=== PATIENT | female | born 1945 | race Caucasian/White ===

== ENCOUNTER 2023-09-23 07:31 | Outpatient (RCR) | payer OTHER, SELFPAY | END 2023-09-23 23:59 | disposition home or self-care (01) | LOC: RPT 07:31 | PROVIDERS: ATTENDING PHYSICIAN Internal Medicine | DX: G95.20 Unspecified cord compression (principal); R29.898 Other symptoms and signs involving the musculoskeletal system; Z73.6 Limitation of activities due to disability; R26.2 Difficulty in walking, not elsewhere classified; M62.81 Muscle weakness (generalized); M54.50 Low back pain, unspecified | CPT/HCPCS: 97110; 97162 ==

== ENCOUNTER 2023-10-23 09:44 | Outpatient (RCR) | payer OTHER, SELFPAY | END 2023-10-23 23:59 | disposition home or self-care (01) | LOC: RPT 09:44 | PROVIDERS: ATTENDING PHYSICIAN Internal Medicine | DX: G95.20 Unspecified cord compression (principal); R29.898 Other symptoms and signs involving the musculoskeletal system; Z73.6 Limitation of activities due to disability; R26.2 Difficulty in walking, not elsewhere classified; M62.81 Muscle weakness (generalized); M54.50 Low back pain, unspecified; R26.89 Other abnormalities of gait and mobility | CPT/HCPCS: 97010; 97110; 97530 ==

== ENCOUNTER 2023-11-03 08:59 | Outpatient (RCR) | payer OTHER, SELFPAY | END 2023-11-03 23:59 | disposition home or self-care (01) | LOC: RPT 08:59 | PROVIDERS: ATTENDING PHYSICIAN Internal Medicine | DX: G95.20 Unspecified cord compression (principal); R29.898 Other symptoms and signs involving the musculoskeletal system; Z73.6 Limitation of activities due to disability; M62.81 Muscle weakness (generalized); R20.0 Anesthesia of skin; R26.2 Difficulty in walking, not elsewhere classified | CPT/HCPCS: 97010; 97110 ==

== ENCOUNTER → 2023-11-05 09:27 | Outpatient (REF) | payer OTHER, SELFPAY | LOC: HWRAD 09:27 | PROVIDERS: ATTENDING PHYSICIAN Internal Medicine | DX: S93.401A Sprain of unspecified ligament of right ankle, initial encounter (principal) | CPT/HCPCS: 73610 ==

== ENCOUNTER 2023-11-06 03:10 | Inpatient (IN) | payer OTHER, SELFPAY ==
[2023-11-05 22:08] VITALS: BP 152/64
--- NOTE | 2023-11-05 23:06 | ED.GENMED ---
History of Present Illness
General
Chief Complaint: Swelling
Source: patient and spouse
Exam Limitations: none
Time Seen by Provider: 11/05/23 22:30
Travel History
Have you had any contact with someone who has COVID-19?: No
Do you have any symptoms of coronavirus? Fever > 100 degrees, chills, cough, shortness of breath, sore throat, loss of taste or smell, muscle aches, or headache?: No
History of Present Illness
History of Present Illness:
This is a 78 year old female that comes in by ambulance with c/o weakness. State that she was trying to go to the [place]. States that she was using her walker and she became weaker and weaker and just fell over the front of the walker. States that she
did not hit the ground but when they lifted her she hat her face. States that she has burning with urination and a headache. Patient also has redness of the right foot with pain. States that she had X-rays done of the right foot this morning.
Denies any fever, chills, chest pain, SOB, abd pain, nausea, vomiting, diarrhea, dizziness.
Past History
Past History
ED Past Medical History: Arrthythmia (Atrial fib), HTN and Other (Herniated disc, Chronic back pain, ); Negative Asthma, Hypercholesterolemia or NIDDM
ED Past Surgical History: Orthopedic (Laminectomy. Foot surgery, Right and left knee replacement.) and Other (Hernia surgery, )
Social History
Tobacco: Former smoker
Alcohol: Former
Drug: None
Personal:
Living: with family
Employment: Retired
Review of Systems
Review of Systems
All Other Systems: ROS reviewed and negative except as documented in HPI and ROS
Constitutional: Reports no symptoms; Denies fever or chills
EENT: Reports no symptoms
Respiratory: Reports no symptoms; Denies cough or trouble breathing
Cardiac: Reports no symptoms; Denies chest pain
ABD/GI: Reports no symptoms; Denies abdominal pain, nausea, vomiting or diarrhea
: Reports dysuria; Denies frequency or urgency
Musculoskeletal: Reports no symptoms
Skin: Reports no symptoms
Neurological: Reports headache and weakness; Denies dizzy
Psychiatric: Reports no symptoms
Phy Exam
General Physical Exam
General Presentation: no apparent distress
General age: appears stated age
General Skin: warm and dry
General Habitus: elderly
General Mental: alert
General Hydration: dry mucous membranes
ENT Exam
ENT Exam: TM's normal, pharynx normal and neck supple
Eye Exam
Eye Exam: EOMI
Cardiovascular Exam
Cardiovascular Exam: regular rate/rhythm and normal peripheral pulses
Pulmonary Exam
Pulmonary Exam: lungs clear, no respiratory distress, no rales, chest non tender, no crackles, no rhonchi, no wheezing and no cough
Gastrointestinal Exam
Gastrointestinal Exam: normal bowel sounds, non tender, soft, no organomegaly, no pulsatile mass and non distended
Musculoskeletal Exam
Musculoskeletal Exam: other (Negative for cervical spine or shoulder tenderness. right foot Limited ROM due to swelling and pain. )
Skin Exam
Skin Exam: normal color, warm/dry, no petechia and redness (right foot on the medial aspect to ankle and dorsal aspect of foot, Contusion right lower lip. Abrasion right shoulder and forehead)
Psychiatric Exam
Psychiatric Exam: normal mood/affect
Scores
Heart Failure Risk
Heart Failure Risk Score: Not Applicable
Course
Orders/Labs/Results
Orders:
Orders
11/05/23 23:05
CT Facial Bones W/o Iv Contras Urgent
Comment:
Reason For Exam: facial bruising fall
CT Head W/o Iv Contrast Urgent
Comment:
Reason For Exam: Fall
0.9% Sodium Chloride 1000 ml [Nss] 1,000 ml IV BOLUS
11/05/23 23:15
Electrocardiogram (*1) Urgent
Reason for Study: Fatigue / Weakness
EKG- Treatment ONCE
11/05/23 23:39
Complete Blood Count/With Diff Urgent
Comprehensive Metabolic Panel Urgent
Lactic Acid Urgent
Troponin I Urgent
Blood Culture Q30M
[facility] Source: Blood/Venous
Specimen Description:
11/05/23 23:45
Blood Culture Q30M
[facility] Source: Blood/Venous
Specimen Description:
11/05/23 23:56
Urinalysis Reflex To Culture Urgent
Date Specimen was Collected: 11/05/23
Time Specimen was Collected: 23:55
Comment: STRAIGHT CATH
11/06/23 01:20
Potassium Chloride Powder [Klor-Con] 20 meq PO NOW STA
11/06/23 01:22
CR Chest - 2 Views Urgent
Comment:
Reason For Exam: weakness, tachycardia
Abnormal Lab Results
11/05/23
23:39
WBC 12.9 H 10^3/uL
(4.8-10.8)
MPV 11.1 H fL
(7.4-10.4)
Absolute Neuts (auto) 10.6 H 10^3/uL
(1.4-6.5)
Absolute Monos (auto) 0.9 H 10^3/uL
(0.1-0.6)
Neutrophils % 82.3 H %
(42.2-75.2)
Lymphocytes % 9.6 L %
(20.5-51.1)
Potassium 3.2 L mmol/L
(3.5-5.1)
Chloride 94 L mmol/L
(98-107)
BUN 24 H mg/dl
(7-17)
Glucose 212 H mg/dl
(70-99)
Lactic Acid 2.8 H mmol/L
(0.7-2.0)
11/05/23 23:39
03/13/24 23:39
Leukocytosis, Potassium slightly low. Chloride low. Dehydration. Glucose nonfasting. Lactic acid elevation. Troponin <0.012 Urine negative for infection.
Vital Signs
Initial and Last Documented VS:
Initial Vital Signs
Temp Pulse Resp BP Pulse Ox
98.0 F 113 18 152/64 92
11/05/23 22:08 11/05/23 22:08 11/05/23 22:08 11/05/23 22:08 11/05/23 22:08
Last Documented Vital Signs
Temp Pulse Resp BP Pulse Ox
98.7 F 94 24 151/55 95
11/05/23 23:27 11/06/23 02:04 11/06/23 01:45 11/06/23 02:04 11/06/23 02:04
MDM/Problems Addressed
Differential Diagnosis Includes:
UTI, Cellulitis,
MDM/Problems Addressed:
This is a 78 year old female that comes in by ambulance after trying to get to the bathroom and became weaker and weaker and was leaning over her walker. EMS had to lift patient. Patient state that she has urinary burning.
Will check labs, Urine, Give IV fluids, CT head and facial bones.
Back into see patient and . Explained that her blood work shows dehydration and her CT of the head and facial bones is negative. Awaiting the urine as her Lactic acid is elevated. states that she can't even walk and he would be
unable to get the patient in the house. Will admit patient. Hospitalist notified.
Chronic conditions affecting care:
NA
Acute Exacerbation and/or Progression of Chronic Illness:
NA
*Radiology
Radiology exam reviewed: preliminary read by ED provider (Chest- Questionable lower lobe Pneumonia), radiology read reviewed (CT head and facial bones Night hawk- No acute hemorrhage, herniation or hydrocephalus. Moderate periventricular
hypodensities, likely the sequela of small vessel ischemic disease. Evidence of chronic appearing left basal ganglia lacunar infarct. No Calvarial fracture. The visualized paranasal ) and other (CT cont- sinuses and mastoid air cells are clear. No
orbital injury. NO retrobulbar hemorrhage. No facial fracture. Mucosal thickening within the sphenoid sinuses. )
*EKG
Interpreted by ED Provider?: Yes
Heart Rate: 102
Rate: tachycardiac
Rhythm: sinus tachycardia
[place]: normal axis
Interval: normal interval
QRS Pattern: normal QRS
Ischemia: non-specific ST changes (V2, V3, V4, Checked by Dr. Steele)
*Rail Flaw Detector Operator Interpretation
Rate: tachycardiac
Heart Rate: 111
Rhythm: sinus tachycardia
*Critical Care Note
Total Time (30-74mins, 75-104mins- exclusive of procedures): Not Applicable
ED Attending Note
-
Portions of this chart may have been created with voice recognition software.� Occasional wrong word or��sound alike� substitutions may have occurred due to the inherent limitations of voice recognition software.
Discharge Plan
Departure
Patient Disposition: Admit
Date of Disposition: 11/06/23
Time of Disposition: 01:20
Admit to: Med/Surg
Presentation/result/management discussed w/ accepting MD/DO: Hospitalist
Patient with high blood pressure during this ER visit?: Yes
Condition: Good
Covid-19: Not Applicable
Discharge Problem:
Weakness, Falls, Questionable lower lobe Pneumonia
Prescriptions:
No Action
diazepam [Valium] 5 mg tablet
5 mg PO HS PRN (Reason: muscle spasm) Qty: 5 0RF
Patient Comments:
06/10/2023: last filled 06/09/23, 90 tabs for 30 days from [facility]
potassium chloride 10 mEq Capsule, Extended Release
10 meq PO DAILY
hydromorphone [Dilaudid] 4 mg Tablet
4 mg PO Q6H PRN (Reason: pain s/p back surgery per pt)
Blood Pressure Medicine
Patient Comments:
unknown name or dose of blood pressure medicine
Referrals:
Jason Corona, [Family Provider] -
Interventions
Interventions:
*Risk Screen - Suicide Last Done: 11/05/23 22:13
*General Assessment Last Done: 11/05/23 22:12
*Neglect/Abuse Screening Last Done: 11/05/23 22:13
ED- Fall Risk Assessment Last Done: 11/05/23 22:12
*ED COVID-19 Vaccine History Last Done: 11/05/23 22:12
ED- Cardiac Assessment Last Done: 11/05/23 22:46
ED-Skin Assessment Last Done: 11/05/23 22:46
[2023-11-05 23:48] LABS: % Basophils 0.4 % (0-2); % Eosinophils 0.2 % (0-6); % Immature Granulocytes 0.3 % (0-0.5); % Lymphocytes 9.6 % (20.5-51.1); % Monocytes 7.2 % (1.7-9.3); % Neutrophils 82.3 % (42.2-75.2); Absolute Basophils 0.1 10^3/uL (0-0.2); Absolute Lymphocytes 1.2 10^3/uL (1.2-3.4); Absolute Monocytes 0.9 10^3/uL (0.1-0.6); Absolute Neutrophils 10.6 10^3/uL (1.4-6.5); Hematocrit 39.3 % (37.0-47.0); Hemoglobin 14.1 g/dL (12.0-16.0); Mean Corp Hgb Conc. 35.9 g/dL (33.0-37.0); Mean Corpuscular Hgb 30.9 pg (27.0-31.0); Mean Corpuscular Volume 86.2 fL (81.0-99.0); Mean Platelet Volume 11.1 fL (7.4-10.4); Nucleated Red Blood Cells % 0 %; Platelet Count 228 10^3/uL (130-400); Red Blood Cell Count 4.56 10^6/uL (4.20-5.40); Red Cell Dist. Width 12.5 % (11.5-14.5); White Blood Cell Count 12.9 10^3/uL (4.8-10.8)
[2023-11-06] VITALS (13 sets, daily range): BP systolic 133–160; BP diastolic 47–68; PULSE 77–88; O2SAT 98; BMI 33.1; BMI 32.3
[2023-11-06] MEDS: NSS 1000 IV (00:05)
[2023-11-06 00:08] LABS: ALT (SGPT) 21 U/L (0-35); AST (SGOT) 30 U/L (14-36); Albumin 4.1 g/dl (3.5-5.0); Alkaline Phosphatase 81 U/L (38-126); Blood Urea Nitrogen 24 mg/dl (7-17); Calcium 9.2 mg/dl (8.4-10.2); Carbon Dioxide 28 mmol/L (22-30); Chloride 94 mmol/L (98-107); Glucose 212 mg/dl (70-99); Potassium 3.2 mmol/L (3.5-5.1); Sodium 135 mmol/L (135-145); Total Bilirubin 0.5 mg/dl (0.2-1.3); Total Protein 7.1 g/dl (6.3-8.2); eGFR > 60.00
[2023-11-06 00:14] LABS: Troponin I < 0.012 ng/ml
[2023-11-06 00:16] LABS: Lactic Acid 2.8 mmol/L (0.7-2.0)
[2023-11-06 00:55] LABS: Urine Albumin Negative (Neg - Trace); Urine Bilirubin Negative (Negative); Urine Character Clear (Clear); Urine Color Yellow; Urine Glucose Negative (Negative); Urine Ketone Negative (Negative); Urine Leukocyte Negative (Negative); Urine Nitrite Negative (Negative); Urine Occult Blood Negative (Negative); Urine Specific Gravity 1.015 (<1.030); Urine Urobilinogen Negative (Neg - 1+)
[2023-11-06] MEDS: KLOR-CON 20 MEQ PO ×2 (02:02→02:32)
--- NOTE | 2023-11-06 02:27 | HPS.HSE ---
Family Physician
-
Family Physician: Jason Corona
Chief Complaint
-
R Foot Pain / Gait Dysfunction
History of Present Illness
Patient is an 78y F with PMH significant for chronic pain / chronic opioid dependence, obesity and hypertension who presents to ED complaining of R foot pain and difficulty ambulating this evening. Patient states that she started with pain,
swelling and redness in the R foot on Friday. She denies any fall, injury or trauma. Her symptoms have gradually progressed. This evening, she gout up to use the bathroom and had significant pain with weight bearing on the R foot.
Patient went to the bathroom, but was unable to get up off of the toilet due to the pain / inability to bear weight. She states that she remained on the toilet for some time and was 'weak all over'.
EMS was called to assist her up off of the toilet and patient requested ED evaluation.
There was reported history of fall with head trauma (and patient has ecchymoses on the R face) but patient denies any fall or trauma.
She states that the bruises on her face are from her glasses being removed (?).
Medical History
Past Medical History
Past Medical History: Reports Other
Additional Past Medical History:
Hypertension
Lumbar DDD / Spinal Stenosis
Chronic Pain Syndrome
Chronic Opioid Dependence
Anxiety / Depression
History of Atrial Fibrillation
Obesity
Past Surgical History: Reports Other
Additional Past Surgical History:
Laminectomy from T12 - L5. Patient states no hardware in place
Bilateral TKA
Laparoscopic Right BSO
Social History
Tobacco: Former Smoker (Quit smoking in the 1990s. Approx 30 pack years total use.)
Alcohol: None
Drug: None
Family History
Family History: Not pertinent
Allergies / Home Medications
Allergies reflects when Allergies were last updated in [facility].
Home Medications with original date entered in [facility]
Allergy/Medication List:
Patient cannot recall allof her medications.
She states that she takes:
Dilaudid 4mg PO QID PRN pain
Valium 10mg TID PRN muscle spasms
These meds are confirmed via PDMP.
She also states that she takes potassium (but does not know the dose) and a new BP pill (? name / dose).
The BP pill was started about 2 months ago.
Review of Systems
-
History Source: Patient
A 12 point ROS was completed and negative except as noted: Yes
Constitutional: Reports Fatigue; Denies Fever or Chills
EENT: Denies Sore Throat
Respiratory: Denies Cough or Trouble Breathing
Cardiac: Denies Chest Pain or Palpitations
Abdomen/GI: Denies Abdominal Pain, Nausea, Vomiting or Diarrhea
: Denies Dysuria, Frequency or Flank Pain
Musculoskeletal: Reports Joint Pain, Joint Swelling and Edema
Skin: Reports Other (Redness)
Neurological: Reports Weakness; Denies Dizzy or Headache
Psych: Denies Depression or Anxiety
Physical Exam
Vital Signs
Vital Signs
Temp Pulse Resp BP Pulse Ox
98.7 F 94 24 151/55 95
11/05/23 23:27 11/06/23 02:04 11/06/23 01:45 11/06/23 02:04 11/06/23 02:04
Physical Exam
General: Other (78y F in no acute distress. Flat affect. Answers questions / follows commands.)
HEENT: Other (Thick neck. MMM. Bruising over the R face including the lower lip, nose and forehead. )
Respiratory: Clear; No Wheezes, Rales or Rhonchi
Cardiac: S1/S2 and Regular Rhythm; No Murmur
GI: Non Tender, Non Distended, Normal Bowel Sounds and Other (Obese)
Musculoskeletal: No Clubbing, No Cyanosis and Other (Erythema, increased warmth and tendernss over the medial aspect of the R foot from the heel to the great toe. Pos tenderness without lymphangitis.)
Neuro: AO x 3
Laboratory Results
-
11/05/23 23:39
11/05/23:39
Laboratory Results
Lactic Acid 2.8 mmol/L (0.7-2.0) H 11/05/23:39
Total Bilirubin 0.5 mg/dl (0.2-1.3) 11/05/23 23:39
AST 30 U/L (14-36) 11/05/23:39
ALT 21 U/L (0-35) 11/05/23:39
Alkaline Phosphatase 81 U/L (38-126) 11/05/23:39
Troponin I < 0.012 ng/ml 11/05/23:39
Impression/Plan
-
A/P: Patient is an 78y F with PMH significant for chronic pain syndrome, HTN and obesity who presents to ED complaining of weakness, ambulatory dysfunction and R foot pain.
Right Foot Pain / Swelling
Ambulatory Dysfunction secondary to the above
- Observe overnight for further evaluation and treatment.
- Symptoms / location / etc are suspicious for gout - patient denies any prior history.
- Check uric acid. Trial of NSAIDs and follow for improvement in symptoms.
- Will cover with IV Ancef fo now as cellulitis cannot be ruled out at this time.
- Follow for clinical improvement / improved ability to bear weight.
Benign Hypertension
- BP elevated in the ED - likely in part secondary to pain.
- Reconcile meds in the AM and resume usual outpatient BP med - if appropriate.
- Continue efforts at pain control.
Chronic Pain Syndrome
Chronic Narcotic Dependence
Polypharmacy
Lumbar Spinal Stenosis s/p Laminectomies
- Confirmed via PDMP that patient is on Dilaudid 4mg PO QID and Valium 10mg TID.
- Would decrease both medications as able.
- Certainly this combination is contributing to her overall weakness and gait dysfunction.
- PT / OT evaluations.
- Recommend outpatient Pain Management evaluation and continued efforts at med reduction.
Mild Hypokalemia
- PO replacement ordered in the ED. Follow for improvement.
- Check Mg.
- ? if home BP agent is thiazide or other diuretic?
Hyperglycemia
- Random glucose > 200 suspicious for DM.
- Follow glucose and cover with SSI as needed.
- Check A1C.
- Carb controlled diet.
Obesity due to excess calories
- Affects all aspects of care.
- Encourage healthy diet and increased activity with goal of weight loss.
DVT Prophylaxis: Lovenox
Code Status: Full
[2023-11-06] MEDS: MAXIPIME 1000 MG IV (02:38)
[2023-11-06 03:42] LABS: Creatine Phosphokinase 774 U/L (30-135)
[2023-11-06 05:15] LABS: Erythrocyte Sed Rate 20 mm/hour (0-20)
--- NOTE | 2023-11-06 08:22 | W.PN.HOSP.TC ---
Today's Communication/Plan
-
PT OT
get meds list
Podiatry eval
AB Pain control
Assessment / Plan
Assessment / Plan
78-year-old female presented to the hospital with right foot pain and gait dysfunction. Patient denies any falls. States that she had pain yesterday in the right foot. Denies any injury. She also has ecchymosis on the right face which she
attributes to her glasses. When asked how glasses can hurt just above the lip she could not give me an explanation.
Foot X-ray-no acute fracture or dislocation. Nonspecific mild soft tissue edema of the ankle and foot. Mild degenerative spurring in the medial and lateral malleoli. Mild dorsal spurring midfoot. Moderate sized plantar and calcaneal enthesophytes
On examination right foot is swollen and painful to touch. Mild redness noted. Patient has slight foot drop-partially on the right foot
Cardiovascular system S1-S2 appreciated
Chest clear to auscultation
Abdomen soft and nontender
Face with ecchymosis just above the angle of the mouth and also on the right side
No facial droop strength-, equal both sides except for slight foot drop on the right side
# Right foot pain and swelling
History of right foot surgery in the past-unclear details
Ambulatory dysfunction secondary to above
Possible gout flare
NSAIDS, Tylenol and narcotic for pain
AB for infection-Ancef
Follow clinically
Podiatry eval
#Mild elevation lactic acid-repeat
# Hypertension
Medicines need to be reconciled
#Chronic pain syndrome with chronic narcotic dependence
Arthritis /DJD/multilevel degenerative disc disease in the lumbar and thoracic spine
History of lumbar spinal stenosis with laminectomies in the past
Patient is on Dilaudid 4 mg p.o. 4 times daily and Valium 10 mg 3 times daily
May not be the best combination for 78-year-old
Needs pain management evaluation and follow-up as outpatient
# Hypokalemia-replaced
Repeat levels
# History of paroxysmal atrial fibrillation-not on anticoagulation as outpatient per patient preference
# Hyperglycemia
Suspect diabetes
Check hemoglobin A1c
Accu-Cheks
# Cholelithiasis
# Diverticulosis
# Obesity with a BMI of 33
# Ex-smoker
# DVT prophylaxis-Lovenox
# Full code
D/W RN at bed side
Called and left a message for call back.
We need to get accurate medications list for this patient. She does not know all of her medicines.
Anticipated Discharge: Within 24 hours
Subjective/Interval History
-
Date of Service: November 06, 2023
Objective Data
-
Labs:
Laboratory Results
11/05/23
23:39
WBC 12.9 H
Hgb 14.1
Hct 39.3
Plt Count 228
Sodium 135
Potassium 3.2 L
Chloride 94 L
Carbon Dioxide 28
BUN 24 H
Creatinine 0.6
Glucose 212 H
Calcium 9.2
Total Bilirubin 0.5
AST 30
ALT 21
Alkaline Phosphatase 81
Vital Signs:
Vital Signs
Temp Pulse Resp BP Pulse Ox
98.1 F 82 20 141/60 98
11/06/23 03:43 11/06/23 06:17 11/06/23 06:17 11/06/23 06:17 11/06/23 06:17
I&O
11/05/23 11/06/23 11/07/23
06:59 06:59 06:59
Intake Total 1300 / 1300
Output Total 850 / 850
Balance 450 / 450
[2023-11-06 08:59] LABS: Glucose - Point of Care 100 mg/dl (70-99)
--- NOTE | 2023-11-06 08:59 | PHANOTE ---
11/06/2023, [employer], used pharmacy fill data to compile list of pt.'s meds.; pt. does not know their own meds.; attempted to call pt.'s spouse but was unsuccessful; pt. has no current records in [facility]; could not confirm pt.'s meds.
[2023-11-06] MEDS: LR 1000 IV ×2 (09:00→17:36)
[2023-11-06] MEDS: PROTONIX IV 40 MG IV (09:03)
[2023-11-06] MEDS: ANCEF 10 IV ×2 (09:03→17:20)
[2023-11-06] MEDS: NSS (PRESERVATIVE FREE) 10 ML IV (09:04)
[2023-11-06] MEDS: MOTRIN 600 MG PO (09:04)
[2023-11-06] MEDS: TYLENOL 1000 MG PO (09:04)
[2023-11-06] MEDS: COLACE 100 MG PO (09:04)
[2023-11-06] MEDS: CYMBALTA DELAYED RELEASE 30 MG PO (09:06)
[2023-11-06 10:04] LABS: Hemoglobin 13.1 g/dL (12.0-16.0); Mean Corp Hgb Conc. 36.4 g/dL (33.0-37.0); Mean Corpuscular Volume 87.8 fL (81.0-99.0); Mean Platelet Volume 11.4 fL (7.4-10.4); Platelet Count 224 10^3/uL (130-400); Red Cell Dist. Width 12.5 % (11.5-14.5); White Blood Cell Count 8.5 10^3/uL (4.8-10.8)
[2023-11-06 10:18] LABS: Blood Urea Nitrogen 14 mg/dl (7-17); Calcium 8.2 mg/dl (8.4-10.2); Carbon Dioxide 28 mmol/L (22-30); Chloride 100 mmol/L (98-107); Estimated Creatinine Clearance 86 ml/min; Glucose 101 mg/dl (70-99); Magnesium 1.6 mg/dl (1.6-2.3); Potassium 3.2 mmol/L (3.5-5.1); Sodium 132 mmol/L (135-145); Uric Acid 5.5 mg/dl (2.5-6.2); eGFR > 60.00
[2023-11-06] MEDS: SENOKOT 8.59999999999999964 MG PO (10:58)
[2023-11-06 10:59] LABS: TSH Reflex To Free T4 1.92 uIU/ml (0.47-4.68)
[2023-11-06 11:18] LABS: Lactic Acid 1.2 mmol/L (0.7-2.0)
[2023-11-06 11:44] LABS: Glucose - Point of Care 117 mg/dl (70-99)
[2023-11-06 13:15] LABS: Glycohemoglobin (HgbA1c) 6.5 % (4.0-5.6)
[2023-11-06] MEDS: COZAAR 25 MG PO (14:03)
--- NOTE | 2023-11-06 17:14 | PTCARENOTE ---
Received patient from ED via hospital bed. AAOx2. Disoriented to time. Forgetful. Bed alarm in place. Flat affect. Assessed and oriented to room. Call barker in close reach.
[2023-11-06] MEDS: TYLENOL PO ×2 (17:20→21:09)
[2023-11-06] MEDS: MOTRIN PO ×2 (17:20→21:09)
[2023-11-06 17:31] LABS: Glucose - Point of Care 117 mg/dl (70-99)
[2023-11-06] MEDS: LOVENOX 40 MG SC (17:31)
[2023-11-06] MEDS: PAMELOR 10 MG PO (17:56)
--- NOTE | 2023-11-06 20:46 | W.CS.POD ---
Consult Summary - Podiatry
-
This patient is an 78 year old female admitted to the hospital yesterday with Right foot pain and gait dysfunction. She reports waking and getting up in the morning 'Friday' noticing severe pain in her right foot, unable to weight bear. EMS was
called while she was in the bathroom and she was brought to ER. She denies any traumatic onset of symptoms, sprain, or fall. Further inquiry reveals she noticed difficulty lifting her right foot for the first time this week, again without any
known injury. At this time, she is not experiencing any pain in the right foot, ankle or leg, and she denies any fever, chills or sweats. Additionally, she mentions having back surgery approximately 13 months ago for chronic disc disease, reporting
only some numbness over the top of the right foot following the surgery. She was unaware of any weakness in the foot until this week.
-WBC 8.5 (12.9 on admission)
-Uric Acid 5.5
-ESR 20
11/05/23: Right ankle XRAY: No fractures, dislocations, or suspicious bony abnormalities. The ankle mortise is preserved. There is minimal spurring along both the medial and lateral malleoli. There are moderate-sized plantar and calcaneal
enthesophytes. Mild dorsal spurring within the midfoot.
Assessment:
Drop foot deformity, right.
Dependent edema, RLE
Hypertension
Lumbar DDD / Spinal Stenosis
Chronic Pain Syndrome
Chronic Opioid Dependence
Anxiety / Depression
History of Atrial Fibrillation
Obesity
Plan:
I believe the swelling within the right foot, ankle and lower leg is due to chronic dependent edema related to her drop foot deformity.
No break in the skin, cellulitis, or source of infection appreciated clinically. No acute injury to the foot and ankle is suspected.
The right foot/ankle pain is limited to manipulation of the anterior ankle joint line and dorsomedial tarsometatarsal joints, likely due to osteoarthritis, the pressure created by the chronic edema, and perhaps a minor sprain of these joints.
XRAYS taken do not include the foot proper so this was ordered to be done in the AM.
From a podiatry standpoint, this can be managed on an outpatient basis where an EMG/NCV, edema therapy, and evaluation for the need for MAFO bracing can be initiated.
Please reconsult as necessary.
[2023-11-06] MEDS: COLACE PO (21:12)
[2023-11-06] MEDS: SENOKOT PO (21:12)
--- NOTE | 2023-11-06 21:27 | PTCARENOTE ---
Addendum entered by Maddy Cano 11/07/23 02:56:
0200 pt urinated 100 mls scanned for 622- straight cathed for 650 mls clear yellow urine.
Original Note:
Pt voided 300 mls, bladder scanned for 438. Explained straight cath to patient- pt refusing at this time. Explained risks- continues to refuse. Stating 'you can check me at 0300'.
--- NOTE | 2023-11-06 21:32 | PTCARENOTE ---
Pt refusing all medications at this time. Pt educated.
[2023-11-06 22:11] LABS: Glucose - Point of Care 156 mg/dl (70-99)
[2023-11-07] MEDS: ANCEF 10 IV ×3 (00:40→16:31)
[2023-11-07] MEDS: LR 1000 IV ×2 (01:22→11:30)
[2023-11-07] MEDS: TYLENOL 1000 MG PO ×2 (01:48→10:16)
[2023-11-07 03:37] VITALS: BP 163/74
--- NOTE | 2023-11-07 04:45 | PTCARENOTE ---
Addendum entered by Maddy Cano 11/07/23 05:11:
Pt with burning with urination, noted to be excoriated in [place] area, pt bladder scanned for 582- urinated 250. Refusing straight cath at this time. Pt educated. [employer] aware, order for urine culture.
Original Note:
Pt more confused, doesn't remember RN, doesnt remember getting oob 4 hours prior. Neuro check otherwise similar to previous. BP 163/74 manual BP 152/62. [employer] aware.
[2023-11-07 04:52] VITALS: BP 152/62
[2023-11-07 05:53] LABS: Hematocrit 35.2 % (37.0-47.0); Hemoglobin 12.3 g/dL (12.0-16.0); Mean Corp Hgb Conc. 34.9 g/dL (33.0-37.0); Mean Corpuscular Hgb 30.4 pg (27.0-31.0); Mean Corpuscular Volume 86.9 fL (81.0-99.0); Mean Platelet Volume 11.8 fL (7.4-10.4); Platelet Count 207 10^3/uL (130-400); Red Blood Cell Count 4.05 10^6/uL (4.20-5.40); Red Cell Dist. Width 12.2 % (11.5-14.5); White Blood Cell Count 5.9 10^3/uL (4.8-10.8)
[2023-11-07 06:09] LABS: Blood Urea Nitrogen 11 mg/dl (7-17); Calcium 8.2 mg/dl (8.4-10.2); Carbon Dioxide 27 mmol/L (22-30); Chloride 103 mmol/L (98-107); Estimated Creatinine Clearance 85 ml/min; Glucose 100 mg/dl (70-99); Magnesium 1.6 mg/dl (1.6-2.3); Potassium 3.2 mmol/L (3.5-5.1); Sodium 134 mmol/L (135-145); eGFR > 60.00
[2023-11-07 07:45] LABS: Glucose - Point of Care 102 mg/dl (70-99)
[2023-11-07 08:00] VITALS: BP 161/71
[2023-11-07 09:30] VITALS: BMI 32.3
[2023-11-07] MEDS: COZAAR 25 MG PO (10:16)
[2023-11-07] MEDS: SENOKOT 8.59999999999999964 MG PO (10:17)
[2023-11-07] MEDS: MOTRIN PO ×3 (10:17→16:30)
[2023-11-07] MEDS: COLACE 100 MG PO (10:17)
[2023-11-07] MEDS: NSS (PRESERVATIVE FREE) 10 ML IV (10:18)
[2023-11-07] MEDS: PROTONIX IV 40 MG IV (10:19)
[2023-11-07] MEDS: KCL 40 MEQ PO (11:26)
[2023-11-07] MEDS: MAGNESIUM SULFATE 102 GRAMS IV (11:26)
[2023-11-07 12:06] VITALS: BP 152/70; BP 165/72; BP 173/84; PULSE 75; PULSE 82; PULSE 96
[2023-11-07 12:07] VITALS: BP 152/70
[2023-11-07 12:09] LABS: Glucose - Point of Care 96 mg/dl (70-99)
--- NOTE | 2023-11-07 14:49 | CM ---
Addendum entered by aNnda Madrigal 11/07/23 16:36:
[facility] declined patient due to staffing, referral sent to [facility], awaiting confirmation of acceptance.
Original Note:
Patient seen at bedside. Patient lives with her in a 2 story home, however she stays on the first floor, Patient seen by PT/OT recommendation for SNF but patient refusing to go to SNF. Patient willing to accept [facility] supports with [place] [facility]. CM will update physician. Patient PCP is Dr. Nance and she uses the [facility] in [place]. Patient stated that she will go home with her in the car. CM will continue to follow for discharge planning needs.
Plan; home with referral to [facility]. Patient refusing SNF.
--- NOTE | 2023-11-07 15:35 | W.PN.HOSP.TC ---
Addendum entered and electronically signed by Shun Vasquez MD 11/07/23 16:04:
Spoke to Iker-brace has to be done as outpatient through PCP or Podiatry
Original Note:
Today's Communication/Plan
-
If patient continues to refuse SNF
Will discharge home tomorrow
Assessment / Plan
Assessment / Plan
78-year-old female presented to the hospital with right foot pain and gait dysfunction. Patient denies any falls. States that she had pain yesterday in the right foot. Denies any injury. She also has ecchymosis on the right face which she
attributes to her glasses. When asked how glasses can hurt just above the lip she could not give me an explanation.
Foot X-ray-no acute fracture or dislocation. Nonspecific mild soft tissue edema of the ankle and foot. Mild degenerative spurring in the medial and lateral malleoli. Mild dorsal spurring midfoot. Moderate sized plantar and calcaneal enthesophytes
On examination right foot is swollen and painful to touch. Mild redness noted. Patient has slight foot drop-partially on the right foot
Cardiovascular system S1-S2 appreciated
Chest clear to auscultation
Abdomen soft and nontender
# Right foot pain and swelling
History of right foot surgery in the past-unclear details
Ambulatory dysfunction secondary to above
Foot drop
Arthritis flare plus infection
NSAIDS, Tylenol and narcotic for pain
AB for infection-Ancef
Follow clinically
Podiatry eval appreciated
Brace ordered
PT OT
#Mild elevation lactic acid-repeat normal
# Hypertension
Medicines need to be reconciled
#Chronic pain syndrome with chronic narcotic dependence
Arthritis /DJD/multilevel degenerative disc disease in the lumbar and thoracic spine
History of lumbar spinal stenosis with laminectomies in the past
Patient is on Dilaudid 4 mg p.o. 4 times daily and Valium 10 mg 3 times daily
May not be the best combination for 78-year-old
Needs pain management evaluation and follow-up as outpatient
# Hypokalemia-replaced
Replace
# History of paroxysmal atrial fibrillation-not on anticoagulation as outpatient per patient preference
# Suspect diabetes
HbA1C 6.5
Liberalize diet
Accu-Cheks
# Cholelithiasis
# Diverticulosis
# Obesity with a BMI of 33
# Ex-smoker
# DVT prophylaxis-Lovenox
# Full code
D/W RN at bed side
D/W at bed side
Patient wants to go home. I discussed with her that it may not be good idea since PT is recommending rehab.
Also reviewed this with the
Case management consult for discharge planning
Anticipated Discharge: Within 24 hours
Subjective/Interval History
-
Date of Service: November 07, 2023
Objective Data
-
Labs:
Laboratory Results
11/07/23
04:46
WBC 5.9
Hgb 12.3
Hct 35.2 L
Plt Count 207
Sodium 134 L
Potassium 3.2 L
Chloride 103
Carbon Dioxide 27
BUN 11
Creatinine 0.4 L
Glucose 100 H
Calcium 8.2 L
Vital Signs:
Vital Signs
Temp Pulse Resp BP Pulse Ox
97.5 F 78 20 152/70 97
11/07/23 12:07 11/07/23 12:07 11/07/23 12:07 11/07/23 12:07 11/07/23 12:07
I&O
11/06/23 11/07/23 11/08/23
06:59 06:59 06:59
Intake Total 2260 / 2260
Output Total 2300 / 2300
Balance -40 / -40
[2023-11-07 15:56] VITALS: BP 147/57
[2023-11-07] MEDS: TYLENOL PO (16:30)
[2023-11-07] MEDS: FLUSH (NSS) 2 FLUSH IV (16:31)
[2023-11-07 16:52] LABS: Glucose - Point of Care 151 mg/dl (70-99)
--- NOTE | 2023-11-07 17:42 | PTCARENOTE ---
Pt insisting that she is fine and wants to leave AMA. She feels like she does not need the hospital anymore. agreeable to take her home. Dr. Pedro duenas.
[2023-11-07] MEDS: PAMELOR PO (17:55)
[2023-11-07] MEDS: LOVENOX SC (17:55)
--- NOTE | 2023-11-07 18:08 | W.PN.UPDATE ---
Addendum entered and electronically signed by Shun Vasquez MD 11/07/23 18:15:
Dictation- [id number]
Original Note:
Update Note
Progress Note Update
Patient wants to leave AMA. When admitted to the room she told me to just get out of the room. The same thing happened last time with the female attending. Patient told nurse that she does not like female attendings. She was very dismissive when
I try to explain. She is aware that she is leaving AGAINST MEDICAL ADVICE. I still did not want to leave her without any antibiotics therefore I have sent antibiotics for 5 days. Patient was advised to get a repeat potassium levels prescription
was given. I also also to follow-up with PCP.
is aware that she is leaving AMA
--- NOTE | 2023-11-08 07:35 | CM ---
patient signed AMA per medical record.
== END 2023-11-07 18:29 | disposition left against medical advice (07) | DRG 565 ==
LOC: 4 EAST ACU 03:10
PROVIDERS: Clinical Nurse Specialist Family Health; ADMITTING PHYSICIAN Hospitalist; ATTENDING PHYSICIAN Hospitalist; CONSULT PHYSICIAN Podiatrist Foot & Ankle Surgery; EMERGENCY PHYSICIAN Emergency Medicine; FAMILY PHYSICIAN Internal Medicine
DX: M21.371 Foot drop, right foot (principal); F11.20 Opioid dependence, uncomplicated; M79.671 Pain in right foot; R53.1 Weakness; S00.83XA Contusion of other part of head, initial encounter; R30.9 Painful micturition, unspecified; G89.4 Chronic pain syndrome; I10 Essential (primary) hypertension; M54.9 Dorsalgia, unspecified; D72.829 Elevated white blood cell count, unspecified; E86.0 Dehydration; E66.09 Other obesity due to excess calories; F32.A Depression, unspecified; F41.9 Anxiety disorder, unspecified; M48.061 Spinal stenosis, lumbar region without neurogenic claudication; M51.36 Other intervertebral disc degeneration, lumbar region; E87.6 Hypokalemia; E11.65 Type 2 diabetes mellitus with hyperglycemia; M19.90 Unspecified osteoarthritis, unspecified site; M21.969 Unspecified acquired deformity of unspecified lower leg; M10.9 Gout, unspecified; M25.571 Pain in right ankle and joints of right foot; R26.2 Difficulty in walking, not elsewhere classified; I48.0 Paroxysmal atrial fibrillation; K57.90 Diverticulosis of intestine, part unspecified, without perforation or abscess without bleeding; K80.20 Calculus of gallbladder without cholecystitis without obstruction; W01.0XXA Fall on same level from slipping, tripping and stumbling without subsequent striking against object, initial encounter; Y93.01 Activity, walking, marching and hiking; Y92.9 Unspecified place or not applicable; Z96.653 Presence of artificial knee joint, bilateral; Z87.891 Personal history of nicotine dependence; Z68.33 Body mass index [BMI] 33.0-33.9, adult
CPT/HCPCS: 51701; 51798; 70450; 70486; 71046; 73620; 80048; 80053; 81003; 82550; 82962; 83036; 83605; 83735; 84443; 84484; 84550; 85025; 85027; 85652; 87040; 93005; 96361; 96374; 97166; 99285

== ENCOUNTER → 2023-11-20 07:36 | Outpatient (REF) | payer OTHER, SELFPAY | LOC: EMG 07:36 | PROVIDERS: ATTENDING PHYSICIAN Podiatrist Foot & Ankle Surgery; FAMILY PHYSICIAN Internal Medicine | DX: R20.0 Anesthesia of skin (principal) | CPT/HCPCS: 95886; 95910 ==

== ENCOUNTER 2023-12-22 07:49 | Outpatient (RCR) | payer OTHER, MEDICARE, SELFPAY | END 2023-12-22 23:59 | disposition home or self-care (01) | LOC: RPT 07:49 | PROVIDERS: ATTENDING PHYSICIAN Internal Medicine | DX: G95.20 Unspecified cord compression (principal); R29.898 Other symptoms and signs involving the musculoskeletal system; Z73.6 Limitation of activities due to disability; R26.2 Difficulty in walking, not elsewhere classified; M62.81 Muscle weakness (generalized); Z91.81 History of falling | CPT/HCPCS: 97010; 97110 ==

== ENCOUNTER 2024-01-12 07:12 | Outpatient (RCR) | payer OTHER, MEDICARE, SELFPAY | END 2024-01-20 08:27 | disposition home or self-care (01) | LOC: RPT 07:12 | PROVIDERS: ATTENDING PHYSICIAN Internal Medicine | DX: R29.898 Other symptoms and signs involving the musculoskeletal system (principal); G95.20 Unspecified cord compression; Z73.6 Limitation of activities due to disability | CPT/HCPCS: 97110 ==

== ENCOUNTER → 2024-01-29 07:38 | Outpatient (REF) | payer OTHER, SELFPAY ==
[2024-01-29 11:02] LABS: ALT (SGPT) 22 U/L (0-35); AST (SGOT) 26 U/L (14-36); Albumin 4.1 g/dl (3.5-5.0); Alkaline Phosphatase 79 U/L (38-126); Blood Urea Nitrogen 20 mg/dl (7-17); Calcium 9.3 mg/dl (8.4-10.2); Carbon Dioxide 33 mmol/L (22-30); Chloride 98 mmol/L (98-107); Glucose 119 mg/dl (70-99); Magnesium 1.8 mg/dl (1.6-2.3); Potassium 4.1 mmol/L (3.5-5.1); Sodium 139 mmol/L (135-145); Total Bilirubin 0.3 mg/dl (0.2-1.3); Total Protein 6.9 g/dl (6.3-8.2); eGFR > 60.00
[2024-01-29 13:14] LABS: Glycohemoglobin (HgbA1c) 6.5 % (4.0-5.6)
== END ==
LOC: HWLAB 07:38
PROVIDERS: ATTENDING PHYSICIAN Internal Medicine
DX: E87.6 Hypokalemia (principal); E11.9 Type 2 diabetes mellitus without complications
CPT/HCPCS: 36415; 80053; 83036; 83735

== ENCOUNTER 2024-03-18 12:18 | Emergency (ER) | payer OTHER, SELFPAY ==
[2024-03-18 12:22] VITALS: BP 134/69
[2024-03-18 13:53] LABS: Urine Albumin Negative (Neg - Trace); Urine Bilirubin Negative (Negative); Urine Character Clear (Clear); Urine Color Yellow; Urine Glucose Negative (Negative); Urine Ketone Negative (Negative); Urine Leukocyte 2+ (Negative); Urine Nitrite Negative (Negative); Urine Occult Blood Negative (Negative); Urine Specific Gravity 1.015 (<1.030); Urine Urobilinogen Negative (Neg - 1+)
[2024-03-18 13:55] LABS: % Basophils 0.6 % (0-2); % Eosinophils 1.8 % (0-6); % Immature Granulocytes 0.2 % (0-0.5); % Lymphocytes 24.8 % (20.5-51.1); % Monocytes 8.1 % (1.7-9.3); % Neutrophils 64.5 % (42.2-75.2); Absolute Basophils 0.1 10^3/uL (0-0.2); Absolute Eosinophils 0.2 10^3/uL (0-0.7); Absolute Lymphocytes 2.3 10^3/uL (1.2-3.4); Absolute Monocytes 0.7 10^3/uL (0.1-0.6); Absolute Neutrophils 5.9 10^3/uL (1.4-6.5); Hematocrit 39.5 % (37.0-47.0); Hemoglobin 13.9 g/dL (12.0-16.0); Mean Corp Hgb Conc. 35.2 g/dL (33.0-37.0); Mean Corpuscular Hgb 31.3 pg (27.0-31.0); Nucleated Red Blood Cells % 0 %; Platelet Count 263 10^3/uL (130-400); Red Blood Cell Count 4.44 10^6/uL (4.20-5.40); Red Cell Dist. Width 13.7 % (11.5-14.5); White Blood Cell Count 9.1 10^3/uL (4.8-10.8)
[2024-03-18 14:05] LABS: Urine Red Blood Cell 0-2 /HPF (0-2)
[2024-03-18 14:15] LABS: ALT (SGPT) 21 U/L (0-35); AST (SGOT) 23 U/L (14-36); Albumin 4.3 g/dl (3.5-5.0); Alkaline Phosphatase 77 U/L (38-126); Blood Urea Nitrogen 40 mg/dl (7-17); Calcium 9.5 mg/dl (8.4-10.2); Carbon Dioxide 30 mmol/L (22-30); Chloride 99 mmol/L (98-107); Glucose 122 mg/dl (70-99); Potassium 3.9 mmol/L (3.5-5.1); Sodium 135 mmol/L (135-145); Total Bilirubin 0.4 mg/dl (0.2-1.3); Total Protein 6.9 g/dl (6.3-8.2); eGFR > 60.00
[2024-03-18 14:19] VITALS: BP 144/56
--- NOTE | 2024-03-18 15:55 | ED.GENMED ---
History of Present Illness
General
Chief Complaint: Gait Dysfunction
Source: patient and family
Time Seen by Provider: 03/18/24 12:54
History of Present Illness
History of Present Illness:
78-year-old female presents with weakness and low back pain that was worse this morning. She states she feels much better. states she took Dilaudid this morning and again before coming to the ER. She has been taking Dilaudid up to several
times a day due to her back pain. She states she often is stiff in the morning but today seems worse. She does feel better on my evaluation. No fevers.
Past History
Past History
ED Past Medical History: Arrthythmia (Atrial fib), HTN and Other (Herniated disc, Chronic back pain, ); Negative Asthma, Hypercholesterolemia or NIDDM
ED Past Surgical History: Orthopedic (Laminectomy. Foot surgery, Right and left knee replacement.) and Other (Hernia surgery, )
Social History
Tobacco: Former smoker
Alcohol: Former
Drug: None
Personal:
Living: with family
Employment: Retired
Phy Exam
Physical Exam
Physical Exam:
CONSTITUTIONAL Vital signs reviewed, Patient alert and oriented to person, place and time. Well-appearing
HEAD atraumatic, normocephalic.
EYES eyelids normal to inspection, Extraocular muscles intact, Conjunctiva normal, Sclera normal.
NECK normal range of motion, Trachea midline, no jugular venous distention.
RESP no respiratory distress
BACK healed midline scars noted with mild deformity
UPPER EXTREMITY Gross Range of motion normal, gross motor strength normal
LOWER EXTREMITY Gross range of motion normal, Gross motor strength normal
NEURO Speech normal, No focal motor deficits include, Kvng coma scale 15, Memory normal, Cranial Nerves intact to screening exam.
SKIN Skin warm, dry, and normal in color.
PSYCHIATRIC Patient oriented to person place and time, Normal affect.
Course
Orders/Labs/Results
Orders:
Orders
03/18/24 13:42
Complete Blood Count/With Diff Urgent
Comprehensive Metabolic Panel Urgent
Urinalysis Reflex To Culture Urgent
Date Specimen was Collected: 03/18/24
Time Specimen was Collected: 13:32
Urine Microscopic Reflex Cult Urgent
Urine Culture Urgent
YUMI Source: U
Specimen Description:
Obtained by: Random
Date Specimen was Collected: 03/18/24
Time Specimen was Collected: 13:32
03/18/24 15:24
Lumbar Spine, 2 or 3 View [CR Lumbar Spine 2 Or 3 Views] Urgent
Comment:
Reason For Exam: pain
Abnormal Lab Results
03/18/24
13:42
MCH 31.3 H pg
(27.0-31.0)
MPV 11.0 H fL
(7.4-10.4)
Absolute Monos (auto) 0.7 H 10^3/uL
(0.1-0.6)
BUN 40 H mg/dl
(7-17)
Glucose 122 H mg/dl
(70-99)
Leukocyte Esterase Rfl 2+ A
(Negative)
Urine WBC (Reflex) 11-15 A /HPF
(0-5)
03/18/24 13:42
03/18/24 13:42
Vital Signs
Initial and Last Documented VS:
Initial Vital Signs
Temp Pulse Resp BP Pulse Ox
99.6 F 95 18 134/69 97
03/18/24 12:22 03/18/24 12:22 03/18/24 12:22 03/18/24 12:22 03/18/24 12:22
Last Documented Vital Signs
Temp Pulse Resp BP Pulse Ox
98.4 F 84 15 146/58 98
03/18/24 16:38 03/18/24 16:38 03/18/24 16:38 03/18/24 16:38 03/18/24 16:38
MDM/Problems Addressed
MDM/Problems Addressed:
Chronic back pain, narcotic use
*Radiology
Radiology exam reviewed: preliminary read by ED provider (No acute changes) and radiology read reviewed
*Pulse Oximetry
Patient hypoxic: no
*Critical Care Note
Total Time (30-74mins, 75-104mins- exclusive of procedures): Not Applicable
Data Reviewed
Review of Other/Old Records Reveals: Radiology Studies (Prior x-rays reviewed)
Source: patient and spouse
Patient Management
Escalation/DeEscalation of care consider admission/obs:
Patient does feel better on reassessment. She does have follow-up with an outpatient back specialist upcoming. I do suspect some of her symptoms were related to her meds and chronic pain. Okay for discharge and outpatient follow-up as she has no
new neurologic deficits.
ED Attending Note
-
Portions of this chart may have been created with voice recognition software.� Occasional wrong word or��sound alike� substitutions may have occurred due to the inherent limitations of voice recognition software.
Discharge Plan
Departure
Patient Disposition: Home (Routine Discharge)
Date of Disposition: 03/18/24
Time of Disposition: 15:55
Patient with high blood pressure during this ER visit?: No
Discharge Problem:
Chronic back pain
Instructions: Low Back Pain ED, BLOOD PRESSURE
Prescriptions:
No Action
latanoprost 0.005 % Drops
1 drp BOTH EYES HS
potassium chloride 10 mEq capsule, extended release
10 meq PO DAILY
nortriptyline 10 mg Capsule
10 mg PO QPM
losartan 25 mg Tablet
25 mg PO DAILY
triamterene 37 mg
37 mg PO QPM
docusate sodium 100 mg Capsule
100 mg PO BID Qty: 0 0RF
sennosides [Senna Laxative] 8.6 mg Tablet
8.6 mg PO BID Qty: 60 0RF
polyethylene glycol 3350 [HealthyLax] 17 gram Powder In Packet
17 g PO DAILY Qty: 0 0RF
magnesium oxide 500 mg magnesium Tablet
500 mg PO DAILY Qty: 0 0RF
ibuprofen 600 mg Tablet
600 mg PO TID Qty: 9 0RF
acetaminophen [Tylenol Extra Strength] 500 mg Tablet
1,000 mg PO TID Qty: 12 0RF
pantoprazole [Protonix] 40 mg tablet,delayed release (DR/EC)
40 mg PO DAILY Qty: 7 0RF
cephalexin 500 mg capsule
500 mg PO Q6H Qty: 20 0RF
diazepam 10 mg Tablet
5 mg PO TID PRN (Reason: anxiety) Qty: 0 0RF
Patient Comments:
11/06/2023, pt. filled this med. on 11/04/2023 for 90 tablets per PDMP.
hydromorphone [Dilaudid] 4 mg Tablet
2 mg PO Q6HPRN PRN (Reason: severe pain) Qty: 0 0RF
Patient Comments:
11/06/2023, pt. filled this med. on 11/04/2023 for 120 tablets per PDMP.
Activity Restrictions/Additional Instructions:
Return immediately for worsening symptoms, numbness, tingling, fevers, vomiting or any other concerns. Please follow-up with your back specialist as planned.
Interventions
Interventions:
*Risk Screen - Suicide Last Done: 03/18/24 12:22
*General Assessment Last Done: 03/18/24 12:22
*Neglect/Abuse Screening Last Done: 03/18/24 12:22
*Nursing Disposition Last Done: 03/18/24 17:28
ED- Neurological Assessment Last Done: 03/18/24 14:13
ED-Musculoskeletal Assessment Last Done: 03/18/24 14:13
ED Swallowing Screen Last Done: 03/18/24 14:13
Discharge Date and Time
Discharge Date/Time: 03/18/24 17:29
Print Language: BELIZEAN
[2024-03-18 16:38] VITALS: BP 146/58
== END 2024-03-18 17:29 | disposition home or self-care (01) ==
LOC: EMR 12:18
PROVIDERS: EMERGENCY PHYSICIAN Emergency Medicine; FAMILY PHYSICIAN Internal Medicine Gastroenterology
DX: M54.50 Low back pain, unspecified (principal); R53.1 Weakness; G89.29 Other chronic pain; I10 Essential (primary) hypertension; I48.91 Unspecified atrial fibrillation; M51.25 Other intervertebral disc displacement, thoracolumbar region; Z87.891 Personal history of nicotine dependence; Z96.653 Presence of artificial knee joint, bilateral; Z88.5 Allergy status to narcotic agent; Z88.2 Allergy status to sulfonamides; Z88.8 Allergy status to other drugs, medicaments and biological substances; Z91.030 Bee allergy status
CPT/HCPCS: 99283; 72100; 80053; 81003; 81015; 85025; 87086

== ENCOUNTER → 2024-03-31 11:08 | Outpatient (REF) | payer OTHER, SELFPAY | LOC: HWRAD 11:08 | PROVIDERS: ATTENDING PHYSICIAN Internal Medicine | DX: M16.11 Unilateral primary osteoarthritis, right hip (principal) | CPT/HCPCS: 73502 ==

== ENCOUNTER 2024-05-05 06:13 | Day surgery (SDC) | payer OTHER, SELFPAY ==
[2024-04-15 07:59] VITALS: BMI 35.6
[2024-04-15 09:08] LABS: Hematocrit 43.2 % (37.0-47.0); Hemoglobin 15.3 g/dL (12.0-16.0); Mean Corp Hgb Conc. 35.4 g/dL (33.0-37.0); Mean Corpuscular Hgb 32.3 pg (27.0-31.0); Mean Corpuscular Volume 91.1 fL (81.0-99.0); Mean Platelet Volume 11.3 fL (7.4-10.4); Platelet Count 241 10^3/uL (130-400); Red Blood Cell Count 4.74 10^6/uL (4.20-5.40); Red Cell Dist. Width 13.2 % (11.5-14.5); White Blood Cell Count 8.3 10^3/uL (4.8-10.8)
[2024-04-15 11:11] LABS: Glycohemoglobin (HgbA1c) 6.1 % (4.0-5.6)
[2024-04-15 11:14] LABS: ALT (SGPT) 21 U/L (0-35); AST (SGOT) 23 U/L (14-36); Albumin 4.6 g/dl (3.5-5.0); Alkaline Phosphatase 76 U/L (38-126); Blood Urea Nitrogen 34 mg/dl (7-17); Calcium 9.6 mg/dl (8.4-10.2); Carbon Dioxide 25 mmol/L (22-30); Chloride 103 mmol/L (98-107); Estimated Creatinine Clearance 58 ml/min; Glucose 100 mg/dl (70-99); Potassium 3.9 mmol/L (3.5-5.1); Sodium 144 mmol/L (135-145); Total Bilirubin 0.4 mg/dl (0.2-1.3); Total Protein 7.2 g/dl (6.3-8.2); eGFR > 60.00
--- NOTE | 2024-04-21 10:06 | VNURNOTE ---
Patient is scheduled for an elective R THR on 05/05/24. Home health liaison spoke to patient on phone. She is a same day surgery and states she was approved to stay overnight. Patient interested in having [facility] after she gets home. Visit schedule,
homebound policy, pet policy explained. Patient aware visiting nurse and physical therapy will contact her within 1-[address] [facility]. Patient is in agreement. Patient did not have time to discuss further details because
she was at an appointment. Was given home health liaison contact # if she has a question. Referral sent through careport to [facility]
Patient reports she lives with her spouse in a 2 story home. Patient reminded to bring her walker with her on the day of surgery.
Spouse: Donald Gentile: [phone] Jason Corona. RX: is Raymond Hernandez
[2024-04-29 09:11] VITALS: BMI 35.6
[2024-05-05] VITALS (26 sets, daily range): BP systolic 126–190; BP diastolic 37–87; PULSE 91–95; O2SAT 98; BMI 35.6
[2024-05-05] MEDS: CELEBREX 200 MG PO (07:23)
[2024-05-05] MEDS: NORMOSOL-R/PLASMALYTE-A 1000 IV ×2 (07:23→13:46)
[2024-05-05] MEDS: MORPHINE SULFATE 1 MG IV (09:38)
[2024-05-05] MEDS: DILAUDID 0.25 MG IV ×4 (09:52→12:23)
[2024-05-05] MEDS: NORCO 5/325 1 TABLET PO ×2 (10:24→13:44)
--- NOTE | 2024-05-05 10:25 | W.DS.TRANS ---
DC Summary - Technical Advisor
-
Discharge Instructions:
Sleep Apnea Risk Intermediate
Discharge Diagnosis/Procedures R HERMAN Newman 05/05/24
Diet Diabetic, Carb Controlled
Activity With Walker
Driving Restrictions No driving
Bathing Restrictions OK to Shower
Other Services PT
Instructions:
Stand-Alone Forms:
Changes to Home Medications: Yes
Discharge Medications:
DC Medications w/original date entered in [facility]
losartan 25 mg tablet 25 mg PO DAILY Blood Pressure 11/06/23
potassium chloride 10 mEq capsule,extended release 10 meq PO DAILY Electrolyte Repletion 11/06/23
ascorbic acid 7.5 mg-vit E 7.5 unit-biotin 1,250 mcg chewable tablet (Hair,Skin,Nails with Biotin) 3 tab PO DAILY 04/29/24
diazepam 10 mg tablet 10 mg PO TID PRN anxiety 04/29/24
fyrlhsvu-yan-dtsh-FA-Ca carb-vit K 18 mg iron-400 mcg-500 mg tablet 1 tab PO DAILY 04/29/24
triamterene 37.5 mg-hydrochlorothiazide 25 mg capsule 1 cap PO HS 04/29/24
Saccharomyces boulardii 250 mg capsule (Florastor) 250 mg PO BID #1 cap 05/05/24
acetaminophen 500 mg tablet (Tylenol Extra Strength) 1,000 mg (2 x 500 mg) PO QID Pain #0 tabs 05/05/24
aspirin 325 mg tablet 325 mg PO DAILY blood clot prevention #1 tab 05/05/24
cefadroxil 500 mg capsule 500 mg PO BID infection prevention #14 caps 05/05/24
docusate sodium 100 mg capsule (Colace) 100 mg PO BID stool softner #1 cap 05/05/24
hydrocodone 5 mg-acetaminophen 325 mg tablet 1 tab PO Q6H PRN 1 tab moderate pain or 2 if severe #30 tabs 05/05/24
magnesium hydroxide 400 mg/5 mL oral suspension (Milk of Magnesia) 30 ml PO HS PRN Constipation #1 mL 05/05/24
mupirocin 2 % topical ointment 1 applic topical BID 05/05/24
ondansetron 4 mg disintegrating tablet 4 mg PO Q6H PRN n/v #20 tabs 05/05/24
sennosides 8.6 mg tablet (Senokot) 17.2 mg (2 x 8.6 mg) PO BID laxative #2 tabs 05/05/24
Home Medication Changes
cefadroxil 500 mg capsule 500 mg PO BID infection prevention #14 caps 05/05/24�
hydrocodone 5 mg-acetaminophen 325 mg tablet 1 tab PO Q6H PRN 1 tab moderate pain or 2 if severe #30 tabs 05/05/24�
mupirocin 2 % topical ointment 1 applic topical BID 05/05/24�
ondansetron 4 mg disintegrating tablet 4 mg PO Q6H PRN n/v #20 tabs 05/05/24�
Pending Results: No
[2024-05-05 12:01] LABS: Glucose - Point of Care 128 mg/dl (70-99)
[2024-05-05] MEDS: TYLENOL 650 MG PO ×3 (13:44→23:01)
[2024-05-05] MEDS: ZOFRAN ODT (ORALLY DISINTEGRATING) 4 MG PO (13:44)
--- NOTE | 2024-05-05 14:05 | PTCARENOTE ---
Pt arrived to 2S in bed. Full assessment completed. BL LEs with decreased movement, R > L. Pedal pulses weak to palpation, neurovascular assessment otherwise intact. R hip aquacell with a scant amount of drainage. IVF initiated, nasal cannula
maintained, telemetry applied. Bed locked and in the lowest position, safety maintained. Oriented to room and call barker. Spouse at bedside.
[2024-05-05 17:11] LABS: Glucose - Point of Care 185 mg/dl (70-99)
[2024-05-05] MEDS: TYLENOL PO ×2 (17:56→19:56)
[2024-05-05] MEDS: ASPIRIN 325 MG PO (17:57)
[2024-05-05] MEDS: ANCEF 5 IV ×2 (17:57→23:01)
--- NOTE | 2024-05-05 18:07 | PTCARENOTE ---
Pt refusing insulin this evening. Stated ' i dont want that, i dont need that'. RN educated pt on post op infection risk and correlation with elevated blood sugars. Pt refused teaching and continues to refuse insulin at this time. Care ongoing at
this time.
--- NOTE | 2024-05-05 18:15 | PTCARENOTE ---
Pt with no urine output since prior to surgery and no urge to void/ discomfort. Bladder scan now for 482. Pt refusing straight cath at this time, education provided, pt stated ' i will go eventually'. Dr Newman made aware. Care remains ongoing.
[2024-05-05] MEDS: TORADOL 15 MG IV (19:55)
[2024-05-05] MEDS: BACTROBAN 2% OINTMENT 1 APPLIC NASAL (19:55)
[2024-05-05] MEDS: NORCO 5/325 2 TABLET PO (19:56)
[2024-05-05] MEDS: FLOMAX 0.4 MG PO (19:56)
[2024-05-05] MEDS: VALIUM 5 MG PO (19:56)
[2024-05-05] MEDS: ZOFRAN ODT (ORALLY DISINTEGRATING) PO (21:18)
[2024-05-05] MEDS: COLACE PO (21:18)
[2024-05-05] MEDS: SENOKOT PO (21:18)
[2024-05-05 22:12] LABS: Glucose - Point of Care 139 mg/dl (70-99)
[2024-05-05] MEDS: PEPCID 20 MG PO (22:55)
[2024-05-05] MEDS: NEURONTIN 300 MG PO (22:56)
[2024-05-06] VITALS (8 sets, daily range): BP systolic 130–170; BP diastolic 46–65; PULSE 87
[2024-05-06] MEDS: TYLENOL PO ×3 (04:51→19:51)
--- NOTE | 2024-05-06 07:48 | W.PN.UPDATE ---
Update Note
Progress Note Update
came to see pt this am but she was sound asleep so I left her sleeping. Plan for home today p PT
[2024-05-06 07:57] LABS: Glucose - Point of Care 103 mg/dl (70-99)
[2024-05-06] MEDS: VALIUM 5 MG PO ×2 (08:45→19:53)
[2024-05-06] MEDS: ASPIRIN 325 MG PO (08:45)
[2024-05-06] MEDS: ZOFRAN ODT (ORALLY DISINTEGRATING) 4 MG PO ×2 (08:45→19:51)
[2024-05-06] MEDS: SENOKOT 17.2 MG PO (08:46)
[2024-05-06] MEDS: TYLENOL 650 MG PO ×3 (08:46→23:22)
[2024-05-06] MEDS: COLACE 100 MG PO (08:47)
[2024-05-06] MEDS: MOBIC 15 MG PO (08:47)
[2024-05-06] MEDS: BACTROBAN 2% OINTMENT 1 APPLIC NASAL ×2 (08:47→19:49)
[2024-05-06] MEDS: COZAAR 25 MG PO (08:47)
[2024-05-06] MEDS: TORADOL 15 MG IV ×2 (08:48→19:50)
--- NOTE | 2024-05-06 09:04 | PTCARENOTE ---
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 Bladder scan this am for 581, pt denies discomfort/ urge to void. Pt refusing straight cath at this time. Education provided, pt stated ' later'. Frankie Guerrero [facility] made aware. Care
ongoing at this time.
[2024-05-06] MEDS: FLOMAX 0.8 MG PO (09:35)
[2024-05-06] MEDS: NORCO 5/325 1 TABLET PO ×2 (11:42→15:45)
[2024-05-06 12:19] LABS: Glucose - Point of Care 134 mg/dl (70-99)
--- NOTE | 2024-05-06 13:40 | W.PN.ORTHO ---
Today's Communication / Plan
-
d/c am if stable
Assessment
.
Distal Motor Intact: Yes
Dressing:
Clean, dry and intact.
Assessment:
Urinary retention-s/p Flamx .8mg--voiding trial pending
Plan
.
Surgery / Date: R HERMAN Newman 05/05/24
DVT Prophylaxis: Aspirin
Activity:
Out of bed.
PT/OT
Discharge Plan: SNF
Subjective
.
.:
Patient resting comfortably.
Vital Signs and Labs
.
Vital Signs and Labs:
Lab Results
04/15/24 07:56
04/15/24 07:56
Temp Pulse Resp BP Pulse Ox
97.9 F 87 16 142/46 95
05/06/24 12:10 05/06/24 12:10 05/06/24 12:10 05/06/24 12:10 05/06/24 12:10
Non-invasive Hgb result: 13.3
Physical Exam
-
HEENT: No pallor, cyanosis, or jaundice. Throat clear.
NECK: Supple. No JVD.
RESPIRATORY: Lungs clear to auscultation.
CVS: S1, S2 normal. RRR.� No murmur, rub or gallop.
ABDOMEN: Soft, non-tender. No distension. BS+/normal.
EXTREMITIES: strength equal, no calf pain with palpation
NOUGAT CANDY MAKER HELPER: AOx3. No focal deficits. undercoater grossly intact
--- NOTE | 2024-05-06 14:47 | PTCARENOTE ---
Pts attempting to stand pt at bedside. Pt found sitting at the edge of hip chair slumped forward resting arms on rollator. Pt assisted further back into chair and then to standing position with this RN, PT and PCT. Pt pivoted into bed and
repositioned. Pt and educated on safe transferring, hip precautions, and calling for assistance. and pt verbalized understanding. Care remains ongoing.
--- NOTE | 2024-05-06 15:02 | CM ---
met with patient and spouse at bedside.patient lives with her in house with ramp in front of house. she ambulates with a rw and is I with adl. freda is poa. she has never had a vn or been to ip rehab.
pcp is dr villanueva and [facility] [place]
patient is adm with oa and is sp R total hip arthroplasty.monitoring voiding.patient was seen by therapy who recommended short term snf.referrals sent to [facility].patient will need auth from [facility].Plan snf when bed
available.
[2024-05-06 17:45] LABS: Glucose - Point of Care 130 mg/dl (70-99)
[2024-05-06] MEDS: COLACE PO (19:50)
[2024-05-06] MEDS: SENOKOT PO (19:50)
[2024-05-06] MEDS: NEURONTIN 300 MG PO (21:17)
[2024-05-06] MEDS: PEPCID 20 MG PO (21:17)
[2024-05-06 21:21] LABS: Glucose - Point of Care 128 mg/dl (70-99)
[2024-05-07] VITALS (10 sets, daily range): BP systolic 112–155; BP diastolic 50–76; PULSE 87; O2SAT 97
--- NOTE | 2024-05-07 00:25 | W.PN.UPDATE ---
Update Note
Progress Note Update
low grade temp this evening
with multiple str caths needed will check ua
[2024-05-07 01:07] LABS: Urine Albumin Negative (Neg - Trace); Urine Bilirubin Negative (Negative); Urine Character Slightly Cloudy (Clear); Urine Color Yellow; Urine Glucose Negative (Negative); Urine Ketone Negative (Negative); Urine Leukocyte 2+ (Negative); Urine Nitrite Negative (Negative); Urine Occult Blood 2+ (Negative); Urine Urobilinogen Negative (Neg - 1+)
[2024-05-07 01:18] LABS: Urine Squamous Cell >30 /LPF (Few)
[2024-05-07 01:19] LABS: Urine Bacteria Many (Negative)
[2024-05-07 01:23] LABS: Urine Mucus Moderate; Urine Red Blood Cell 21-25 /HPF (0-2); Urine White Cell 70-80 /HPF (0-5)
[2024-05-07] MEDS: TYLENOL 650 MG PO ×4 (04:24→16:38)
[2024-05-07 07:31] LABS: Glucose - Point of Care 138 mg/dl (70-99)
[2024-05-07] MEDS: ASPIRIN 325 MG PO (08:51)
[2024-05-07] MEDS: ZOFRAN ODT (ORALLY DISINTEGRATING) 4 MG PO ×2 (08:51→19:47)
[2024-05-07] MEDS: COLACE 100 MG PO ×2 (08:51→19:47)
[2024-05-07] MEDS: FLOMAX 0.8 MG PO (08:51)
[2024-05-07] MEDS: COZAAR PO (08:52)
[2024-05-07] MEDS: SENOKOT 17.2 MG PO ×2 (08:53→19:47)
[2024-05-07] MEDS: VALIUM 5 MG PO ×2 (08:53→19:49)
[2024-05-07] MEDS: MOBIC 15 MG PO (08:53)
[2024-05-07] MEDS: NORCO 5/325 1 TABLET PO ×2 (09:30→14:02)
--- NOTE | 2024-05-07 10:58 | W.PN.ORTHO ---
Today's Communication / Plan
-
d/c when stable
Assessment
.
Dressing:
Clean, dry and intact.
Assessment:
B/L LE weakness RLE-2-/5, LLE 3-/5-patients states pre-existing w/ ambulatory dysfunction at baseline-uses walker and wheelchair--likely secondary to extensive spine disease
Urinary retention requiring mcdonald placement-Flomax daily--urine culture pending
Plan
.
Surgery / Date: R HERMAN Newman 05/05/24
DVT Prophylaxis: Aspirin
Activity:
Out of bed.
PT/OT
Discharge Plan: SNF
Subjective
.
.:
Patient resting comfortably.
Vital Signs and Labs
.
Vital Signs and Labs:
Lab Results
04/15/24 07:56
04/15/24 07:56
Temp Pulse Resp BP Pulse Ox
98.6 F 87 20 146/60 97
05/07/24 07:24 05/07/24 08:52 05/07/24 07:24 05/07/24 08:52 05/07/24 08:00
Non-invasive Hgb result: 9.8
Physical Exam
-
HEENT: No pallor, cyanosis, or jaundice. Throat clear.
NECK: Supple. No JVD.
RESPIRATORY: Lungs clear to auscultation.
CVS: S1, S2 normal. RRR.� No murmur, rub or gallop.
ABDOMEN: Soft, non-tender. No distension. BS+/normal.
EXTREMITIES: strength diminished b/l LE-LLE 3-/5, RLE 2-/5 nocalf pain with palpation
SHUTTLE PREPARATION SUPERVISOR: AOx3. No focal deficits. guidance and control system engineer grossly intact
--- NOTE | 2024-05-07 11:51 | CM ---
Addendum entered by Marisa Kirby 05/07/24 16:07:
Began auth in [employer]
Approved for [facility] - [facility]
Cert Number - [id number]
05/08-05/14
NRD 05/15
Noted Provider 1 - incorrect physician/NPI
Called [employer] [facility] [employer] - spoke with Padmini Small [phone]
Updated Padmini and given correct NPI/MD info -
Padmini returned call - auth updated and approved
Called Veronica at [facility] and given auth info
Plan - transfer to [facility] when medically ready
Addendum entered by Marisa Kirby 05/07/24 12:56:
Spoke with Veronica - Accepted at [facility]
Will begin auth
Pt aware
Original Note:
Case management following for discharge planning
Chart reviewed
PT/OT - recs SNF
Referral previously sent
[facility] can not accept - do not accept [employer]
[facility] - no beds
[facility] - no beds
Discussed with pt and her at bedside. Given choice list from Medicare.gov
Pt requesting [facility] and [facility] for referrals
Referrals sent in Care Port
Will need auth
Plan - transfer to SNF when bed and auth obtained and medically ready
[2024-05-07 11:54] LABS: Glucose - Point of Care 160 mg/dl (70-99)
--- NOTE | 2024-05-07 12:09 | W.PN.UPDATE ---
Update Note
Progress Note Update
Pt seen and examined.
She is pessimistic about her situation. Says that she has no strength in her legs which in conjunction w. her we identify as a residential decline due to the untreated hip oa rather than any acute change.
Urine abnormalities noted, hospitalist consulted. Pt also had brief episode of vtach for just a few seconds. Again, hospitalist notified by nurse.
She has intact dorsiflexion of both feet on exam. She is a little tearful and I offered support and encouragement to just take it one day at a time and try to work with therapy. Her surgery was successful and she will need time to rebuild muscle.
She was only walking about 40' a day preop. She says the hip is sore but pain is tolerable which is good.
Anticipate d/c to snf for further rehab over the weekend.
--- NOTE | 2024-05-07 12:15 | PTCARENOTE ---
Pt had a run of SVT on the monitor. Pt without chest pain or SOB. Dr. Newman at bedside with the patient at the time and notified. J Carlos notified and will consult cardiology.
--- NOTE | 2024-05-07 13:08 | CON.CAR ---
Addendum entered and electronically signed by Audrey Layne MD 05/07/24 15:19:
I saw and examined the patient.
The NURSING PROGRAM DIRECTOR's note was reviewed and I agree with the note.
Comment: 78-year-old female (known to Dr. 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 She is tired but otherwise no complaint. On exam
rrr no m/r/g, CTA b/l. Tele with ~4 seconds at otherwise NSR. Recent preop testing normal perfusion and ef.
pSVT,(brief AT) but asx. Would not shagufta this rhythm. Can follow up with op cardiology. H.o of afib, but she denies this history. ECG in 2013 shown post op, refused OAT, for asa and fish oil. None seen on tele, can evaluate further with pcp.
Post op care as per Ortho.
No further recommendations.
I will sign off.
Original Note:
Consultation
Consultation Request
Date/Time Consultation Requested: 05/07/2024 12:50
Date/Time Consultation Performed: 05/07/2024 13:00
Requesting Provider: Terri Childress PA-C
Performing Provider: NATIVIDAD Galan for Dr. Layne
Reason for Consultation: SVT
Medical History
-
Chief Complaint: Tachycardia
History of Present Illness:
Danette Gentile is an 78-year-old female (known to Dr. 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 This was completed by Dr. Newman
05/05/2024. She was found to have atrial tachycardia on telemetry. She was asymptomatic. She is having no chest pain nor shortness of breath.
Past Medical History
Past Medical History: Arrhythmias (Paroxysmal atrial fibrillation [2014]), HTN and NIDDM
Past Surgical History: Orthopedic
Social History
Tobacco: Former Smoker
Alcohol: None
Drug: None
Personal:
Living: With Family
Employment: Retired
Family History
Family History: Reviewed & Not Pertinent
Allergies / Home Medications
Allergy/AdvReac Type Severity Reaction Status Date / Time
fentanyl Allergy Vomiting Verified 05/05/24 06:58
methylprednisolone Allergy swelling Verified 05/05/24 06:58
[From Depo-Medrol] to hands
midazolam HCl [From Versed] Allergy Vomiting Verified 05/05/24 06:58
oxycodone HCl [From Percocet] Allergy Nausea / Verified 05/05/24 06:58
Vomiting
Sulfa (Sulfonamide Allergy Hives Verified 05/05/24 06:58
Antibiotics)
venom-honey bee Allergy Anaphylaxis Verified 05/05/24 06:58
[bee venom (honey bee)]
�Medication �Instructions �Recorded �Confirmed �Type
losartan 25 mg tablet 25 mg PO DAILY Blood Pressure 11/06/23 05/05/24 History
potassium chloride 10 mEq 10 meq PO DAILY Electrolyte 11/06/23 05/05/24 History
capsule,extended release Repletion
ascorbic acid 7.5 mg-vit E 7.5 3 tab PO DAILY 04/29/24 05/05/24 History
unit-biotin 1,250 mcg chewable
tablet (Hair,Skin,Nails with
Biotin)
diazepam 10 mg tablet 10 mg PO TID PRN anxiety 04/29/24 05/05/24 History
uryswooe-xsj-egex-FA-Ca carb-vit K 1 tab PO DAILY 04/29/24 05/05/24 History
18 mg iron-400 mcg-500 mg tablet
triamterene 37.5 1 cap PO HS 04/29/24 05/05/24 History
mg-hydrochlorothiazide 25 mg
capsule
Saccharomyces boulardii 250 mg 250 mg PO BID #1 cap 05/05/24 Rx
capsule (Florastor)
acetaminophen 500 mg tablet 1,000 mg (2 x 500 mg) PO QID Pain 05/05/24 05/05/24 Rx
(Tylenol Extra Strength) #0 tabs
aspirin 325 mg tablet 325 mg PO DAILY blood clot 05/05/24 Rx
prevention #1 tab
docusate sodium 100 mg capsule 100 mg PO BID stool softner #1 cap 05/05/24 Rx
(Colace)
magnesium hydroxide 400 mg/5 mL 30 ml PO HS PRN Constipation #1 mL 05/05/24 Rx
oral suspension (Milk of Magnesia)
mupirocin 2 % topical ointment 1 applic topical BID 05/05/24 05/05/24 History
sennosides 8.6 mg tablet (Senokot) 17.2 mg (2 x 8.6 mg) PO BID 05/05/24 Rx
laxative #2 tabs
cefadroxil 500 mg capsule 500 mg PO BID infection prevention 05/06/24 Rx
#14 caps
hydrocodone 5 mg-acetaminophen 325 1 tab PO Q6H PRN 1 tab moderate 05/06/24 Rx
mg tablet pain or 2 if severe #30 tabs
ondansetron 4 mg disintegrating 4 mg PO Q6H PRN n/v #20 tabs 05/06/24 Rx
tablet
Review of Systems
-
History Source: Patient
All other systems: Negative unless noted
Constitutional: No Symptoms
EENT: No Symptoms
Respiratory: No Symptoms
Cardiac: No Symptoms
Abdomen/GI: No Symptoms
: No Symptoms
Musculoskeletal: Joint Pain (Right hip)
Skin: No Symptoms
Neurological: Weakness (chronic)
Endocrine: No Symptoms
Hematologic/Lymphatic: No Symptoms
Physical Exam
Vital Signs
Temp Pulse Resp BP Pulse Ox
97.8 F 87 16 132/57 94
05/07/24 11:23 05/07/24 11:23 05/07/24 11:23 05/07/24 11:23 05/07/24 11:23
Lab Results
04/15/24 07:56
04/15/24 07:56
Physical Exam
General: Well Developed, Well Nourished, No Apparent Distress and Comfortable
HEENT: Normocephalic, Anicteric and Moist Mucous Membranes
Respiratory: Clear, Wheezes and Non Labored Respirations
Cardiac: S1/S2 and Regular Rhythm; Negative Peripheral Edema
Breast: Deferred by me
GI: Soft, Non Tender, Non Distended and Normal Bowel Sounds
Rectal: Deferred by Provider
Genito-urinary: No Costovertebral Tender
Musculoskeletal: No Clubbing, No Cyanosis and No Edema
Skin: Warm and Dry
Neuro: AO x 3
Hematologic/Lymphatic: No Lymphadenopathy
Psych: Calm
Impression / Plan
-
Atrial tachycardia
-Brief and asymptomatic
-EKG ordered
-CBC, BMP, & Mg ordered
Paroxysmal atrial fibrillation
-Currently in sinus rhythm
-Seen post operatively in 2013 (converted to sinus without DCCV)
-Oral Anticoagulation: None
-[id number]: score 5 (HTN, age 75 or more, Diabetes Mellitus, female gender)
HTN, BP above goal, likely in setting of pain
Status post right total hip arthroplasty by Dr. Newman 05/05/2024
Urinary retention, requiring Mclaughlin catheter, per primary service
Type 2 diabetes mellitus, HbA1c 6.1%
Data:
Pharmacologic stress test 03/2024:
Fixed apical defect.
Wall motion is normal with hyperdynamic function.
Suspect this may be artifact.
No evidence of active ischemia.
Data Reviewed
-
Labs: Labs Reviewed by me
Old Records: Reviewed
[2024-05-07 14:00] LABS: Hematocrit 29.7 % (37.0-47.0); Hemoglobin 10.4 g/dL (12.0-16.0); Mean Corpuscular Hgb 31.8 pg (27.0-31.0); Mean Corpuscular Volume 90.8 fL (81.0-99.0); Mean Platelet Volume 10.8 fL (7.4-10.4); Platelet Count 170 10^3/uL (130-400); Red Blood Cell Count 3.27 10^6/uL (4.20-5.40); Red Cell Dist. Width 13.2 % (11.5-14.5); White Blood Cell Count 7.3 10^3/uL (4.8-10.8)
[2024-05-07 14:05] LABS: Blood Urea Nitrogen 18 mg/dl (7-17); Calcium 8.6 mg/dl (8.4-10.2); Carbon Dioxide 27 mmol/L (22-30); Chloride 100 mmol/L (98-107); Estimated Creatinine Clearance 77 ml/min; Glucose 150 mg/dl (70-99); Magnesium 1.9 mg/dl (1.6-2.3); Potassium 4.1 mmol/L (3.5-5.1); Sodium 138 mmol/L (135-145); eGFR > 60.00
[2024-05-07 16:00] LABS: Glucose - Point of Care 133 mg/dl (70-99)
[2024-05-07] MEDS: TYLENOL PO (19:57)
[2024-05-07 21:37] LABS: Glucose - Point of Care 134 mg/dl (70-99)
[2024-05-07] MEDS: NEURONTIN 300 MG PO (21:40)
[2024-05-07] MEDS: PEPCID 20 MG PO (21:40)
[2024-05-08] MEDS: TYLENOL PO ×3 (00:48→09:22)
[2024-05-08] MEDS: NORCO 5/325 1 TABLET PO (02:52)
[2024-05-08 03:21] VITALS: BP 165/74
[2024-05-08 07:07] VITALS: BP 149/60
[2024-05-08 07:38] LABS: Glucose - Point of Care 121 mg/dl (70-99)
--- NOTE | 2024-05-08 08:36 | W.PN.UPDATE ---
Update Note
Progress Note Update
Ms. Gentile is POD 3 following her right total hip arthroplasty under the direction of Dr. Newman. She is resting comfortably in bed this morning. She reports aching pain about the hip, but overall reports this is stable. She has worked with
physical therapy. Per PT note, she continues to require heavy assistance for any mobility is not safe to return home. She is resistant to any education or encouragement. They are recommending SNF placement.
Directed exam of the right hip reveals surgical dressing clean, dry and intact. Tenderness to palpation about the right hip. Expected post-operative edema. Calf soft and nontender. Patient able to wiggle toes, plantar and dorsiflex ankle.
Neurovascularly intact distally. VSS.
Assessment:
POD3 right total hip arthroplasty
--WBAT with walker. Posterior hip precautions x6-8 weeks. We appreciate the continued assistance of PT/OT.
--Recommend ASA 325 mg daily x4 weeks for DVT ppx.
--Maintain surgical dressing until 7-10 days post-op.
--B/L LE weakness RLE-2-/5, LLE 3-/5-patients states pre-existing w/ ambulatory dysfunction at baseline-uses walker and wheelchair--likely secondary to extensive spine disease and deconditioning.
--Patient stable to dc from orthopedic perspective. Authorization received. Plan for dc to [facility] this afternoon after eval with PT.
Urinary retention requiring mcdonald placement
--Flomax daily.
--Urine culture pending. UA appears very contaminated. Will follow, but likely outpatient abx prescribed, cefadroxil will cover. Can adjust if needed.
pSVT,(brief AT)
--Asymptomatic. Per cardiology, nothing to do inpatient. Follow up outpatient with cardiology.
[2024-05-08] MEDS: NORCO 5/325 2 TABLET PO (09:21)
[2024-05-08] MEDS: VALIUM 5 MG PO (09:21)
[2024-05-08] MEDS: SENOKOT 17.2 MG PO (09:22)
[2024-05-08] MEDS: ASPIRIN 325 MG PO (09:22)
[2024-05-08] MEDS: COLACE 100 MG PO (09:22)
[2024-05-08] MEDS: COZAAR PO (09:22)
[2024-05-08] MEDS: ZOFRAN ODT (ORALLY DISINTEGRATING) 4 MG PO (09:23)
[2024-05-08] MEDS: FLOMAX 0.8 MG PO (09:23)
[2024-05-08] MEDS: MOBIC 15 MG PO (09:23)
--- NOTE | 2024-05-08 09:30 | W.DS.TRANS ---
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
-
Discharge Instructions:
Sleep Apnea Risk Intermediate
Discharge Diagnosis/Procedures R HERMAN Newman 05/05/24
Diet Diabetic, Carb Controlled
Activity With Walker
Additional Activity Posterior hip precautions
Driving Restrictions No driving
Bathing Restrictions OK to Shower
Instructions:
Stand-Alone Forms:
Changes to Home Medications: No
Discharge Medications:
DC Medications w/original date entered in [facility]
losartan 25 mg tablet 25 mg PO DAILY Blood Pressure 11/06/23
potassium chloride 10 mEq capsule,extended release 10 meq PO DAILY Electrolyte Repletion 11/06/23
ascorbic acid 7.5 mg-vit E 7.5 unit-biotin 1,250 mcg chewable tablet (Hair,Skin,Nails with Biotin) 3 tab PO DAILY 04/29/24
diazepam 10 mg tablet 10 mg PO TID PRN anxiety 04/29/24
owjqzelb-ant-munp-FA-Ca carb-vit K 18 mg iron-400 mcg-500 mg tablet 1 tab PO DAILY 04/29/24
triamterene 37.5 mg-hydrochlorothiazide 25 mg capsule 1 cap PO HS 04/29/24
Saccharomyces boulardii 250 mg capsule (Florastor) 250 mg PO BID #1 cap 05/05/24
acetaminophen 500 mg tablet (Tylenol Extra Strength) 1,000 mg (2 x 500 mg) PO QID Pain #0 tabs 05/05/24
aspirin 325 mg tablet 325 mg PO DAILY blood clot prevention #1 tab 05/05/24
docusate sodium 100 mg capsule (Colace) 100 mg PO BID stool softner #1 cap 05/05/24
magnesium hydroxide 400 mg/5 mL oral suspension (Milk of Magnesia) 30 ml PO HS PRN Constipation #1 mL 05/05/24
mupirocin 2 % topical ointment 1 applic topical BID 05/05/24
sennosides 8.6 mg tablet (Senokot) 17.2 mg (2 x 8.6 mg) PO BID laxative #2 tabs 05/05/24
cefadroxil 500 mg capsule 500 mg PO BID infection prevention #14 caps 05/06/24
hydrocodone 5 mg-acetaminophen 325 mg tablet 1 tab PO Q6H PRN 1 tab moderate pain or 2 if severe #30 tabs 05/06/24
ondansetron 4 mg disintegrating tablet 4 mg PO Q6H PRN n/v #20 tabs 05/06/24
Home Medication Changes
Pending Results: No
--- NOTE | 2024-05-08 10:05 | CM ---
Addendum entered by Marisa Kirby 05/08/24 10:56:
Called pts to inform of transport - no answer - unable to leave VM - mail box full
Original Note:
Pt for discharge today
Transport scheduled for 1-2PM with Acute Care
[facility] aware
Plan - transfer to [facility]
R - [phone]
F - [phone]
[2024-05-08 10:52] VITALS: BP 143/59
[2024-05-08 11:22] VITALS: BP 144/66
[2024-05-08 11:34] LABS: Glucose - Point of Care 197 mg/dl (70-99)
== END 2024-05-08 13:03 ==
LOC: SDS 06:13
PROVIDERS: Nurse Practitioner Family; Nurse Practitioner Gerontology; ATTENDING PHYSICIAN Orthopaedic Surgery; CONSULT PHYSICIAN Internal Medicine Cardiovascular Disease; FAMILY PHYSICIAN Internal Medicine
DX: M16.11 Unilateral primary osteoarthritis, right hip (principal)
CPT/HCPCS: 27130; 73502; 80048; 80053; 81003; 81015; 82962; 83036; 83735; 85027; 87070; 87086; 93005; 97162; 97166; 97530; 97535; C1713; C1776

== ENCOUNTER → 2024-06-09 06:48 | Outpatient (REF) | payer OTHER, SELFPAY ==
[2024-06-09 09:47] LABS: % Eosinophils 2.6 % (0-6); % Immature Granulocytes 0.3 % (0-0.5); % Monocytes 7.6 % (1.7-9.3); % Neutrophils 55.5 % (42.2-75.2); Absolute Basophils 0.1 10^3/uL (0-0.2); Absolute Eosinophils 0.2 10^3/uL (0-0.7); Absolute Lymphocytes 2.5 10^3/uL (1.2-3.4); Absolute Monocytes 0.6 10^3/uL (0.1-0.6); Absolute Neutrophils 4.3 10^3/uL (1.4-6.5); Hematocrit 39.4 % (37.0-47.0); Hemoglobin 13.7 g/dL (12.0-16.0); Mean Corp Hgb Conc. 34.8 g/dL (33.0-37.0); Mean Corpuscular Hgb 32.5 pg (27.0-31.0); Mean Corpuscular Volume 93.4 fL (81.0-99.0); Mean Platelet Volume 10.9 fL (7.4-10.4); Nucleated Red Blood Cells % 0 %; Platelet Count 258 10^3/uL (130-400); Red Blood Cell Count 4.22 10^6/uL (4.20-5.40); Red Cell Dist. Width 13.2 % (11.5-14.5); White Blood Cell Count 7.7 10^3/uL (4.8-10.8)
[2024-06-09 10:04] LABS: ALT (SGPT) 20 U/L (0-35); AST (SGOT) 21 U/L (14-36); Alkaline Phosphatase 99 U/L (38-126); Blood Urea Nitrogen 16 mg/dl (7-17); Calcium 9.6 mg/dl (8.4-10.2); Carbon Dioxide 30 mmol/L (22-30); Chloride 99 mmol/L (98-107); Glucose 113 mg/dl (70-99); Potassium 3.8 mmol/L (3.5-5.1); Sodium 140 mmol/L (135-145); Total Bilirubin 0.4 mg/dl (0.2-1.3); Total Protein 6.7 g/dl (6.3-8.2); eGFR > 60.00
== END ==
LOC: HWLAB 06:48
PROVIDERS: ATTENDING PHYSICIAN Internal Medicine
DX: I12.0 Hypertensive chronic kidney disease with stage 5 chronic kidney disease or end stage renal disease (principal); N18.5 Chronic kidney disease, stage 5
CPT/HCPCS: 36415; 80053; 85025

== ENCOUNTER → 2024-08-02 06:56 | Outpatient (REF) | payer OTHER, SELFPAY ==
[2024-08-02 10:07] LABS: % Eosinophils 1.9 % (0-6); % Immature Granulocytes 0.3 % (0-0.5); % Lymphocytes 30.5 % (20.5-51.1); % Monocytes 6.3 % (1.7-9.3); Absolute Basophils 0.1 10^3/uL (0-0.2); Absolute Eosinophils 0.2 10^3/uL (0-0.7); Absolute Lymphocytes 2.4 10^3/uL (1.2-3.4); Absolute Monocytes 0.5 10^3/uL (0.1-0.6); Absolute Neutrophils 4.7 10^3/uL (1.4-6.5); Hematocrit 42.8 % (37.0-47.0); Hemoglobin 14.3 g/dL (12.0-16.0); Mean Corp Hgb Conc. 33.4 g/dL (33.0-37.0); Mean Corpuscular Hgb 31.3 pg (27.0-31.0); Mean Corpuscular Volume 93.7 fL (81.0-99.0); Mean Platelet Volume 11.9 fL (7.4-10.4); Nucleated Red Blood Cells % 0 %; Platelet Count 244 10^3/uL (130-400); Red Blood Cell Count 4.57 10^6/uL (4.20-5.40); Red Cell Dist. Width 12.6 % (11.5-14.5); White Blood Cell Count 7.8 10^3/uL (4.8-10.8)
[2024-08-02 10:22] LABS: TSH 1.97 uIU/ml (0.47-4.68)
[2024-08-02 10:38] LABS: Glycohemoglobin (HgbA1c) 5.7 % (4.0-5.6)
[2024-08-02 10:58] LABS: HDL Cholesterol 53 mg/dl; LDL Cholesterol, Calculated 134 mg/dl; Total Cholesterol 228 mg/dl (50-199); Triglyceride 207 mg/dl (10-149); Very Low Density Lipoprotein 41 mg/dl (0-30)
== END ==
LOC: HWLAB 06:56
PROVIDERS: ATTENDING PHYSICIAN Internal Medicine
DX: E78.00 Pure hypercholesterolemia, unspecified (principal); E11.22 Type 2 diabetes mellitus with diabetic chronic kidney disease
CPT/HCPCS: 36415; 80061; 83036; 84439; 84443; 85025

== ENCOUNTER → 2024-08-03 06:43 | Outpatient (REF) | payer OTHER, SELFPAY ==
[2024-08-03 10:18] LABS: ALT (SGPT) 21 U/L (0-35); AST (SGOT) 24 U/L (14-36); Albumin 4.3 g/dl (3.5-5.0); Alkaline Phosphatase 81 U/L (38-126); Blood Urea Nitrogen 18 mg/dl (7-17); Calcium 9.3 mg/dl (8.4-10.2); Carbon Dioxide 28 mmol/L (22-30); Chloride 101 mmol/L (98-107); Glucose 110 mg/dl (70-99); Potassium 3.9 mmol/L (3.5-5.1); Sodium 138 mmol/L (135-145); Total Bilirubin 0.4 mg/dl (0.2-1.3); Total Protein 6.8 g/dl (6.3-8.2); eGFR > 60.00
== END ==
LOC: HWLAB 06:43
PROVIDERS: ATTENDING PHYSICIAN Internal Medicine
DX: E78.00 Pure hypercholesterolemia, unspecified (principal)
CPT/HCPCS: 36415; 80053

== ENCOUNTER → 2024-08-11 07:10 | Outpatient (REF) | payer OTHER, SELFPAY | LOC: PAVMRI 07:10 | PROVIDERS: ATTENDING PHYSICIAN Internal Medicine | DX: M47.817 Spondylosis without myelopathy or radiculopathy, lumbosacral region (principal); M48.10 Ankylosing hyperostosis [Forestier], site unspecified; Z98.890 Other specified postprocedural states | CPT/HCPCS: 72148 ==

== ENCOUNTER → 2025-04-15 06:13 | Outpatient (REF) | payer OTHER, SELFPAY ==
[2025-04-15 08:59] LABS: Hematocrit 37.5 % (37.0-47.0); Hemoglobin 13.0 g/dL (12.0-16.0); Mean Corp Hgb Conc. 34.7 g/dL (33.0-37.0); Mean Corpuscular Volume 92.1 fL (81.0-99.0); Nucleated Red Blood Cells % 0 %; Platelet Count 261 10^3/uL (130-400); Red Cell Dist. Width 12.7 % (11.5-14.5)
[2025-04-15 09:03] LABS: ALT (SGPT) 21 U/L (0-35); AST (SGOT) 23 U/L (14-36); Albumin 4.2 g/dl (3.5-5.0); Alkaline Phosphatase 54 U/L (38-126); Blood Urea Nitrogen 11 mg/dl (7-17); Calcium 9.2 mg/dl (8.4-10.2); Carbon Dioxide 30 mmol/L (22-30); Chloride 96 mmol/L (98-107); Glucose 98 mg/dl (70-99); HDL Cholesterol 48 mg/dl; LDL Cholesterol, Calculated 84 mg/dl; Potassium 4.2 mmol/L (3.5-5.1); Sodium 132 mmol/L (135-145); Total Protein 6.7 g/dl (6.3-8.2); Very Low Density Lipoprotein 43 mg/dl (0-30); eGFR > 60.00
[2025-04-15 09:33] LABS: TSH 0.92 uIU/ml (0.47-4.68)
[2025-04-15 10:18] LABS: Glycohemoglobin (HgbA1c) 5.9 % (4.0-5.6)
== END ==
LOC: HWLAB 06:13
PROVIDERS: ATTENDING PHYSICIAN Internal Medicine
DX: E78.00 Pure hypercholesterolemia, unspecified (principal); E11.22 Type 2 diabetes mellitus with diabetic chronic kidney disease; I10 Essential (primary) hypertension; R60.9 Edema, unspecified
CPT/HCPCS: 36415; 80053; 80061; 83036; 84439; 84443; 85025

== ENCOUNTER → 2025-04-28 15:37 | Outpatient (REF) | payer OTHER, SELFPAY | LOC: RCS 15:37 | PROVIDERS: ATTENDING PHYSICIAN Internal Medicine | DX: R60.9 Edema, unspecified (principal); I10 Essential (primary) hypertension | CPT/HCPCS: 93005; 93306 ==

== ENCOUNTER → 2025-04-29 06:34 | Outpatient (REF) | payer OTHER, SELFPAY | LOC: RAD 06:34 | PROVIDERS: ATTENDING PHYSICIAN Internal Medicine | DX: R60.9 Edema, unspecified (principal); R10.84 Generalized abdominal pain | CPT/HCPCS: 76700; 93970 ==

== ENCOUNTER 2025-06-04 01:26 | Observation (INO) | payer OTHER, SELFPAY ==
[2025-06-03] VITALS (8 sets, daily range): BP systolic 134–163; BP diastolic 54–66
--- NOTE | 2025-06-03 19:42 | ED.GENMED ---
History of Present Illness
<Reilly Ayala PA-C - Last Filed: 06/04/25 01:35>
General
Chief Complaint: Musculo-Skeletal Complaint
Time Seen by Provider: 06/03/25 18:50
History of Present Illness
History of Present Illness:
79-year-old female presents to the emergency department for evaluation of severe weakness. She notes that she fell out of bed several nights ago and has had bilateral knee pain since that time, today she was attempting to get up out of her walk-in
shower and was unable to stand. states she cannot even get herself up to go to the bathroom. On further questioning she denies significant knee pain but feels as though her legs are very weak. Denies fevers or chills. Did receive a
COVID-vaccine yesterday
Past History
<Reilly Ayala PA-C - Last Filed: 06/04/25 01:35>
Past History
ED Past Medical History: Arrthythmia (Atrial fib), HTN and Other (Herniated disc, Chronic back pain, ); Negative Asthma, Hypercholesterolemia or NIDDM
ED Past Surgical History: Orthopedic (Laminectomy. Foot surgery, Right and left knee replacement.) and Other (Hernia surgery, )
Social History
Tobacco: Former smoker
Alcohol: Former
Drug: None
Personal:
Living: with family
Employment: Retired
Review of Systems
<Reilly Ayala PA-C - Last Filed: 06/04/25 01:35>
Review of Systems
Allergies reviewed?: Yes
All Other Systems: ROS reviewed and negative except as documented in HPI and ROS
Phy Exam
<Reilly Ayala PA-C - Last Filed: 06/04/25 01:35>
Physical Exam
Physical Exam:
GEN: Well appearing, NAD, WDWN
HEENT: Oral mucosa moist, no scleral icterus
Cardiac: Regular rate
Lung: No respiratory distress, no tachypnea
MSK: No gross deformity or injuries; bilateral knees appear atraumatic with no effusions, range of motion normal bilaterally
Skin: Good color, no pallor or jaundice, no rashes
Neuro: AO x3, moves all extremities freely
Psych: Calm, cooperative
Course
<Reilly Ayala PA-C - Last Filed: 06/04/25 01:35>
Orders/Labs/Results
Orders:
Orders
06/03/25 19:59
Complete Blood Count/With Diff Urgent
Comprehensive Metabolic Panel Urgent
Urinalysis Reflex To Culture Urgent
Date Specimen was Collected: 06/03/25
Time Specimen was Collected: 19:58
Urine Microscopic Reflex Cult Urgent
Urine Culture Urgent
YUMI Source: U
Specimen Description:
Date Specimen was Collected: 06/03/25
Time Specimen was Collected: 19:58
06/04/25 01:14
Admit/Transfer Patient As Directed
Co-Sign Provider:
Level of Care: Observation services
Assign to:: Medical/Surgical
Physician / Group: Aj
Diagnosis: Ambulatory dysfunction
06/04/25 01:15
Code Status As Directed
Resuscitation Status: Full Code
PRN Pain Medication Management As Directed
May give lesser potent ordered pain med per pt: Yes
preference::
Protocol:: Medication orders for pain may be administered in a
manner that supports deferring to patient preference
when the pt is:
- Requesting an ordered lesser potent pain medication.
Least to most potent pain medications are defined
as: acetaminophen < NSAID < tramadol < opioids
(morphine, oxycodone, hydromorphone).
- Requesting a lesser dose of the same medication IF
ORDERED.
- Requesting a less intrusive route of administration
if both routes are prescribed by the provider (PO <
IV).
Abnormal Lab Results
06/03/25
19:59
RBC 4.06 L 10^6/uL
(4.20-5.40)
MCH 32.0 H pg
(27.0-31.0)
Absolute Lymphs (auto) 1.1 L 10^3/uL
(1.2-3.4)
Lymphocytes % 15.4 L %
(20.5-51.1)
Sodium 134 L mmol/L
(135-145)
Carbon Dioxide 31 H mmol/L
(22-30)
Glucose 126 H mg/dl
(70-99)
Leukocyte Esterase Rfl 1+ A
(Negative)
Urine Bacteria (Reflex) Few A
(Negative)
Urine Albumin (Reflex) 1+ A
(Neg - Trace)
06/03/25 19:59
06/03/25 19:59
Vital Signs
Initial and Last Documented VS:
Initial Vital Signs
Temp Pulse Resp BP Pulse Ox
98.0 F 84 20 153/66 98
06/03/25 17:28 06/03/25 17:28 06/03/25 17:28 06/03/25 17:28 06/03/25 17:28
Last Documented Vital Signs
Temp Pulse Resp BP Pulse Ox
98.0 F 81 20 150/52 96
06/03/25 17:28 06/04/25 01:30 06/04/25 01:00 06/04/25 00:00 06/04/25 01:30
<Chapis Leroy MD - Last Filed: 06/03/25 20:47>
Orders/Labs/Results
Orders:
Orders
06/03/25 19:59
Complete Blood Count/With Diff Urgent
Comprehensive Metabolic Panel Urgent
Urinalysis Reflex To Culture Urgent
Date Specimen was Collected: 06/03/25
Time Specimen was Collected: 19:58
Urine Microscopic Reflex Cult Urgent
Urine Culture Urgent
YUMI Source: U
Specimen Description:
Date Specimen was Collected: 06/03/25
Time Specimen was Collected: 19:58
06/04/25 01:14
Admit/Transfer Patient As Directed
Co-Sign Provider:
Level of Care: Observation services
Assign to:: Medical/Surgical
Physician / Group: Aj
Diagnosis: Ambulatory dysfunction
06/04/25 01:15
Code Status As Directed
Resuscitation Status: Full Code
PRN Pain Medication Management As Directed
May give lesser potent ordered pain med per pt: Yes
preference::
Protocol:: Medication orders for pain may be administered in a
manner that supports deferring to patient preference
when the pt is:
- Requesting an ordered lesser potent pain medication.
Least to most potent pain medications are defined
as: acetaminophen < NSAID < tramadol < opioids
(morphine, oxycodone, hydromorphone).
- Requesting a lesser dose of the same medication IF
ORDERED.
- Requesting a less intrusive route of administration
if both routes are prescribed by the provider (PO <
IV).
Abnormal Lab Results
06/03/25
19:59
RBC 4.06 L 10^6/uL
(4.20-5.40)
MCH 32.0 H pg
(27.0-31.0)
Absolute Lymphs (auto) 1.1 L 10^3/uL
(1.2-3.4)
Lymphocytes % 15.4 L %
(20.5-51.1)
Sodium 134 L mmol/L
(135-145)
Carbon Dioxide 31 H mmol/L
(22-30)
Glucose 126 H mg/dl
(70-99)
Leukocyte Esterase Rfl 1+ A
(Negative)
Urine Bacteria (Reflex) Few A
(Negative)
Urine Albumin (Reflex) 1+ A
(Neg - Trace)
06/03/25 19:59
06/03/25 19:59
Vital Signs
Initial and Last Documented VS:
Initial Vital Signs
Temp Pulse Resp BP Pulse Ox
98.0 F 84 20 153/66 98
06/03/25 17:28 06/03/25 17:28 06/03/25 17:28 06/03/25 17:28 06/03/25 17:28
Last Documented Vital Signs
Temp Pulse Resp BP Pulse Ox
98.0 F 81 20 150/52 96
06/03/25 17:28 06/04/25 01:30 06/04/25 01:00 06/04/25 00:00 06/04/25 01:30
<Reilly Ayala PA-C - Last Filed: 06/04/25 01:35>
MDM/Problems Addressed
MDM/Problems Addressed:
Patient seen by attending physician, due to her inability to walk we will admit for further medical management. This may be related to her recent COVID-19 vaccination, labs and urine unremarkable
<Reilly Ayala PA-C - Last Filed: 06/04/25 01:35>
*Pulse Oximetry
SaO2: 98
Oxygen Mode of Delivery: Room air
Patient hypoxic: no
*Critical Care Note
Total Time (30-74mins, 75-104mins- exclusive of procedures): Not Applicable
<Reilly Ayala PA-C - Last Filed: 06/04/25 01:35>
Update Note
Update Note:
Informed by the patient's nurse that the patient is requesting to no longer be treated by a physician delivery assistant as she feels this is is inadequate, requesting physician evaluation. Care signed out to Dr. Leroy
ED Attending Note
<Reilly Ayala PA-C - Last Filed: 06/04/25 01:35>
-
Portions of this chart may have been created with voice recognition software.� Occasional wrong word or��sound alike� substitutions may have occurred due to the inherent limitations of voice recognition software.
<Chapis Leroy MD - Last Filed: 06/03/25 20:47>
ED Attending Note
Patient seen and examined by attending physician: Yes
I performed the substantive portion of visit, reviewed & personally made and approve the management plan that is documented in note by myself or MAX.: Yes
ED Attending Note:
Patient appears nontoxic. Heart sounds regular. Lungs are clear. 5 out of 5 strength in bilateral upper extremities. Patient has 4 out of 5 strength in bilateral lower extremities. She is able to resist gravity with her legs but they fall
before 5 seconds onto the bed. Patient has no saddle anesthesia. She has good tone and reflexes in her bilateral lower extremities. There is no sign clinically of cauda equina
Discharge Plan
Departure
Patient Disposition: Admit
Date of Disposition: 06/03/25
Time of Disposition: 23:22
Admit to: Med/Surg
Presentation/result/management discussed w/ accepting MD/DO: Hospitalist
Discharge Problem:
Generalized weakness, Ambulatory dysfunction
Interventions
Interventions:
*Risk Screen - Suicide Last Done: 06/03/25 17:28
*General Assessment Last Done: 06/03/25 17:28
*Neglect/Abuse Screening Last Done: 06/03/25 17:28
*ED COVID-19 Vaccine History Last Done: 06/03/25 17:28
*ED Influenza Vaccine History Last Done: 06/03/25 17:28
ED-Musculoskeletal Assessment Last Done: 06/03/25 18:30
[2025-06-03 20:07] LABS: Urine Character Clear (Clear)
[2025-06-03 20:09] LABS: Hematocrit 37.3 % (37.0-47.0); Hemoglobin 13.0 g/dL (12.0-16.0); Mean Corp Hgb Conc. 34.9 g/dL (33.0-37.0); Mean Corpuscular Volume 91.9 fL (81.0-99.0); Nucleated Red Blood Cells % 0 %; Platelet Count 221 10^3/uL (130-400); Red Cell Dist. Width 12.1 % (11.5-14.5)
[2025-06-03 20:28] LABS: ALT (SGPT) 21 U/L (0-35); AST (SGOT) 24 U/L (14-36); Albumin 3.8 g/dl (3.5-5.0); Alkaline Phosphatase 72 U/L (38-126); Blood Urea Nitrogen 14 mg/dl (7-17); Calcium 8.9 mg/dl (8.4-10.2); Carbon Dioxide 31 mmol/L (22-30); Chloride 99 mmol/L (98-107); Estimated Creatinine Clearance 81 ml/min; Glucose 126 mg/dl (70-99); Potassium 3.6 mmol/L (3.5-5.1); Sodium 134 mmol/L (135-145); Total Protein 6.3 g/dl (6.3-8.2); eGFR > 60.00
[2025-06-03 20:29] LABS: Urine Urothelial Cell 0-2 /LPF (FEW)
[2025-06-03 20:30] LABS: Urine Red Blood Cell 0-2 /HPF (0-2)
[2025-06-04] VITALS (7 sets, daily range): BP systolic 143–163; BP diastolic 52–85; PULSE 75; BMI 38.6
--- NOTE | 2025-06-04 00:29 | HPS.HSE ---
Family Physician
-
Family Physician: Jason Corona
Chief Complaint
-
generalized weakness
History of Present Illness
This is a 79-year-old female with past medical history significant for paroxysmal atrial fibrillation, chronic pain syndrome on chronic opioids, hypertension, asthma, presents to the emergency department with generalized weakness after a COVID shot
yesterday.
The patient reported that she was sleeping on the edge of bed with the evening and she rolled and fell to the floor landing on both knees. She requested assistance via EMS. They arrived and got her up. They were able to observe her walk around
without any difficulties and they left her at home. The following day is similar event happened again when she was on the edge of the bed and then rolled over. This time she states she did not cause any trauma to her knees. She was able to get up
again with assistance by EMS. They also did not bring her to the hospital. She walked around all day on and denied feeling dizzy or lightheaded. She denied having any chest pain shortness of breath cough or orthopnea. She denies any
urinary symptoms. She usually ambulates with walker.
The following day she got a COVID shot. Later on in the evening when she got up to use the bathroom she felt her legs were so weak and she could not move them. Spouse was unable to support her. EMS was called and she was brought to the emergency
department. She denies having any pain swelling or tenderness in the legs.
Patient has chronic pain and is pending spinal stimulator. She reports chronic right lower extremity weakness. She denies any numbness or tingling in the legs. She denies any incontinence of the bladder or bowel.
In the emergency department she was afebrile, blood pressure was 146/54 with a pulse rate of 73 and she was satting 97% on room air.
CBC was unremarkable, electrolytes BUN and creatinine were normal. UA was unremarkable.
Medical History
Past Medical History
Past Medical History: Reports Other
Additional Past Medical History:
Hypertension
Lumbar DDD / Spinal Stenosis
Chronic Pain Syndrome
Chronic Opioid Dependence
Anxiety / Depression
History of Atrial Fibrillation
Obesity
Past Surgical History: Reports Other
Additional Past Surgical History:
Laminectomy from T12 - L5. Patient states no hardware in place
Bilateral TKA
Laparoscopic Right BSO
Social History
Tobacco: Former Smoker (Quit smoking in the 1990s. Approx 30 pack years total use.)
Alcohol: None
Drug: None
Family History
Family History: Not pertinent
Allergies / Home Medications
Allergies reflects when Allergies were last updated in [employer].
Home Medications with original date entered in [employer]
Allergy/Medication List:
Allergies
Allergy/AdvReac Type Severity Reaction Status Date / Time
fentanyl Allergy Vomiting Verified 06/03/25 17:27
methylprednisolone (From Allergy swelling Verified 06/03/25 17:27
Depo-Medrol) to hands
midazolam HCl (From Versed) Allergy Vomiting Verified 06/03/25 17:27
oxycodone HCl (From Percocet) Allergy Nausea / Verified 06/03/25 17:27
Vomiting
Sulfa (Sulfonamide Allergy Hives Verified 06/03/25 17:27
Antibiotics)
venom-honey bee (bee venom Allergy Anaphylaxis Verified 06/03/25 17:27
(honey bee))
Home Medications
losartan 25 mg tablet 25 mg PO DAILY Blood Pressure 11/06/23
potassium chloride 10 mEq capsule,extended release 10 meq PO DAILY Electrolyte Repletion 11/06/23
diazepam 10 mg tablet 10 mg PO TID PRN anxiety 04/29/24
triamterene 37.5 mg-hydrochlorothiazide 25 mg capsule 1 cap PO HS 04/29/24
acetaminophen 500 mg tablet (Tylenol Extra Strength) 1,000 mg (2 x 500 mg) PO QID Pain #0 tabs 05/05/24
Methadone 10 mg tablet, 10 mg p.o. daily
Review of Systems
-
History Source: Patient
A 12 point ROS was completed and negative except as noted: Yes
Constitutional: Reports Fatigue; Denies Fever or Chills
EENT: Denies Sore Throat
Respiratory: Denies Cough or Trouble Breathing
Cardiac: Denies Chest Pain or Palpitations
Abdomen/GI: Denies Abdominal Pain, Nausea, Vomiting or Diarrhea
: Denies Dysuria, Frequency or Flank Pain
Musculoskeletal: Reports Joint Pain
Neurological: Reports Weakness; Denies Dizzy or Headache
Psych: Denies Depression or Anxiety
Physical Exam
Vital Signs
Vital Signs
Temp Pulse Resp BP Pulse Ox
98.0 F 75 23 146/54 97
06/03/25 17:28 06/03/25 22:15 06/03/25 22:15 06/03/25 22:00 06/03/25 22:15
Physical Exam
General: No Apparent Distress and Obese
HEENT: NormoCephalic, Anicteric, Moist mucous membranes and Atraumatic
Respiratory: Clear; No Wheezes, Rales or Rhonchi
Cardiac: S1/S2 and Regular Rhythm; No Murmur
GI: Non Tender, Non Distended and Normal Bowel Sounds
Rectal: Deferred by Provider
Genito-urinary: Deferred by me
Musculoskeletal: No Clubbing, No Cyanosis, Edema, Left Lower Extremity (Trace), Edema, Right Lower Extremity (Trace) and Other
Neuro: AO x 3, Cranial Nerves Intact, No Sensory Deficits, DTR's Intact & Symmetrical and Other (Slight weakness to the right lower extremity greater than left. Most of the weakness is localized to the hip flexion. Knee flexion appears intact
without any pain or tenderness. Ankle flexion and extension appear intact bilaterally.); No Slurred Speech, Facial Droop or Tremors
Hematologic/Lymphatic: No Lymphadenopathy
Psych: Calm
Laboratory Results
-
06/03/25 19:59
06/03/25 19:59
Laboratory Results
Total Bilirubin 0.3 mg/dl (0.2-1.3) 06/03/25 19:59
AST 24 U/L (14-36) 06/03/25 19:59
ALT 21 U/L (0-35) 06/03/25 19:59
Alkaline Phosphatase 72 U/L (38-126) 06/03/25 19:59
Data Reviewed
-
Lab Data: Labs Reviewed by me
Old Records: Reviewed
Impression/Plan
-
IMPRESSION:
79-year-old female with chronic back pain, hypertension, chronic generalized weakness and ambulatory dysfunction coming in with acute exacerbation of ambulatory dysfunction following a mechanical fall 2 times over the last 3 days. She rolled out of
bed each time landing on her knees. She is not having any pain numbness tingling. No radicular signs. No signs of myelopathy. She does have significant weakness on right hip but is not associated with any radicular signs. She has no other
deficits. She states the weakness in her right hip is chronic but appears worse and has resulted in inability to even use assist device. Patient has attempted physical therapy in the past but had worsening ability to accomplish a task and
discontinued physical therapy. She has no signs of acute infection. She did receive a COVID vaccination yesterday which may be contributing to worsening of weakness.
PLAN:
Ambulatory dysfunction -recent fall with generalized weakness as well as more profound weakness of the right hip compared to baseline. No worsening pain.
-Admit to MedSurg observation
- hip xray
-Pain control with home medications of Tylenol and methadone for now
-Orthostatic vital signs
-PT consult
-Case management
Hypertension -stable
-Continue losartan
Continue hydrochlorothiazide/triamterene
DVT prophylaxis�Lovenox subcu
CODE STATUS�full code
[2025-06-04] MEDS: TYLENOL 650 MG PO ×4 (03:36→17:54)
--- NOTE | 2025-06-04 04:20 | PTCARENOTE ---
Pt received from ER aaox3 forgetful at times, on fall precautions. Pt oriented to room & call barker in reach.Plan of care continued on pt.
[2025-06-04] MEDS: COZAAR 50 MG PO (10:38)
[2025-06-04] MEDS: DESENEX/MITRAZOL/ZEASORB 1 APPLIC TOPICAL ×2 (10:39→20:10)
[2025-06-04] MEDS: DOLOPHINE 10 MG PO (10:39)
[2025-06-04] MEDS: KCL 10 MEQ PO (10:40)
[2025-06-04] MEDS: DYAZIDE 1 CAPSULE PO (10:40)
[2025-06-04] MEDS: FLUSH (NSS) 1 FLUSH IV (10:41)
--- NOTE | 2025-06-04 12:43 | CON.NEURO ---
Consultation
Order
Date of Consultation: 06/04/25
Requesting Provider: Nusrat Carrera MD
Reason for Consult: Foot drop
Neurology Consultation Note.
HPI: This is an 79-year-old woman who presented to [facility] on 06/03/2025 with worsening of chronic ambulatory dysfunction.
According to the patient she developed an acute episode of inability to walk that occurred on Friday. She describes her legs feeling like 'paralysis'. The episode was severe enough that she required ambulance assistance to get out of her walk-in
bathtub, as she could not get up from a seated position. The inability to walk persisted until the ambulance arrived and brought her to the hospital. Her walking ability has since returned to baseline, and she reports being able to walk again.
The patient has been using a walker for approximately 2 years following her spinal surgery. She reports chronic right leg dysfunction, describing that her right leg has 'never been good'. This chronic right leg weakness has prevented her from
driving for the past 4 years. She denies any back pain, leg pain, urinary symptoms, sensory symptoms in the legs or hands.
ER VS: 153/66, 84, afebrile
EKG:Not available.
PDMP:Diazepam 10 Mg 19 tablets filled in on 05/11/2025, 04/05/2025, methadone 10 mg 30 tablets filled in on 03/16/2025.
Labs: Glucose�126, sodium�134, normal WBCs, unremarkable UA
PMH: PA AFib, HTN, dextroconvex scoliosis, DLP, DM, OA, L1-2, mod-sev BL NFS, BMI 38
PSH: T12 level to the L4 laminectomy, Bilateral cataract surgery, BL TKA, HERMAN
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
FH: Not contributory to current presentation
All: Sulfa's, oxycodone, midazolam, methylprednisolone, fentanyl
ROS: HEENT: Positive for headache, negative for vision changes.
Cardiovascular: Negative for chest pain, palpitations.
Genitourinary: Negative for urinary frequency, urgency, or incontinence.
Musculoskeletal: Positive for neck pain, negative for back pain.
Neurological: Positive for recent onset drooling, negative for swallowing difficulties, voice changes, or memory problems.
General: Well developed. In no acute distress.
Cardio: Regular rate and rhythm without murmur. Extremities are without cyanosis or edema.
Neuro:
Mental Status: Alert, oriented to person, place, month, year. Did not know the date. Preserved attention and comprehension. Follows simple requests. No aphasia hemineglect.
Cranial Nerves: Pupils are equally round, symmetrical. EOMs full. Visual donis full to confrontation. No ptosis. No nystagmus. V1-V3 intact to light touch and pinprick bilaterally, symmetric. Face symmetric. Normal hearing AU. The palate
elevated well. SCMs and traps 5/5. Tongue midline. No dysarthria. High-pitched voice, mildly spastic
Motor: Increased motor tone in lower extremities. No pronator or arm drift. Strength 5/5 throughout, except for bilateral hip flexion 4- out of 5, right dorsiflexion�4+ out of 5. No clonus.
Reflexes: 0+ throughout the upper extremities and 0 knees. 0/2 in AJs. Plantar responses flexor bilaterally.
Sensory: Absent vibration at the toes and ankles.
Coordination: Unable to check for dysmetria ('I cannot move'). No tremors myoclonic movements but
Gait: deferred
Assessment and Plan:
I. Transient worsening of chronic ambulatory dysfunction.
II. Chronic asymmetric bilateral LS polyradiculopathy worse at the right L5 level.
III. Distal symmetric large fiber polyneuropathy.
IV. Chronic pain syndrome
V. Mood DO, NOS
. PA A-Fib
- Fall precautions
- Brain MRI without radha
- PT OT
- Aspirin 81 mg QD
- Please check thiamine level, SPEP/IF
I personally reviewed all radiology and labs along with past medical records pertinent to current medical problems. Total time spent in patient care is 60 minutes.
Thank you for allowing us to participate in the care of this patient. We will continue to follow. Please do not hesitate to contact us with any questions or concerns.
Subjective/Objective
Subjective Data
Date of Service: June 04, 2025
Objective Data
Vital Signs
Temp Pulse Resp BP Pulse Ox
36.4 C 72 12 151/76 96
06/04/25 07:00 06/04/25 10:38 06/04/25 07:00 06/04/25 10:38 06/04/25 07:00
Lab Results
06/03/25 19:59
06/03/25 19:59
Sodium 134 mmol/L (135-145) L 06/03/25 19:59
Potassium 3.6 mmol/L (3.5-5.1) 06/03/25 19:59
BUN 14 mg/dl (7-17) 06/03/25 19:59
Glucose 126 mg/dl (70-99) H 06/03/25 19:59
Calcium 8.9 mg/dl (8.4-10.2) 06/03/25 19:59
Patient Allergies
fentanyl Allergy (Verified 06/03/25 17:27)
Vomiting
methylprednisolone (From Depo-Medrol) Allergy (Verified 06/03/25 17:27)
swelling to hands
midazolam HCl (From Versed) Allergy (Verified 06/03/25 17:27)
Vomiting
oxycodone HCl (From Percocet) Allergy (Verified 06/03/25 17:27)
Nausea / Vomiting
Sulfa (Sulfonamide Antibiotics) Allergy (Verified 06/03/25 17:27)
Hives
venom-honey bee (bee venom (honey bee)) Allergy (Verified 06/03/25 17:27)
Anaphylaxis
Medications
-
Active Medications
Generic Name Dose Route Start Last Admin
Trade Name Freq PRN Reason Stop Dose Admin
Acetaminophen 650 mg 06/04/25 02:45 06/04/25 09:18
Acetaminophen 325 Mg Tablet PO 07/02/25 02:44 650 mg
Q4HPRN PRN Administration
mild pain/VAUGHAN/temp> 100.4F
Bisacodyl 10 mg 06/04/25 02:45
Bisacodyl 10 Mg Rectal Suppository RECTAL 07/02/25 02:44
[id number] PRN
constipation
Diazepam 10 mg 06/04/25 02:45
Diazepam 5 Mg Tablet PO
TID PRN
anxiety
Enoxaparin Sodium 40 mg 06/04/25 18:00
Enoxaparin Sodium 40 Mg/0.4 Ml Syringe SC 07/02/25 17:59
QPM ATTILA
Losartan Potassium 50 mg 06/04/25 08:00 06/04/25 10:38
Losartan 50 Mg Tablet PO 07/02/25 07:59 50 mg
DAILY ATTILA Administration
Methadone HCl 10 mg 06/04/25 08:00 06/04/25 10:39
Methadone 5 Mg Tablet PO 06/18/25 07:59 10 mg
DAILY ATTILA Administration
Miconazole Nitrate 0 applic 06/04/25 08:00 06/04/25 10:39
Miconazole Powder Bottle TOPICAL 07/02/25 07:59 1 applic
BID ATTILA Administration
Polyethylene Glycol 17 grams 06/04/25 02:45
Polyethylene Glycol Powder 17 Grams Packet PO 07/02/25 02:44
DAILYPRN PRN
constipation
Potassium Chloride 10 meq 06/04/25 08:00 06/04/25 10:40
Potassium Chloride 10 Meq Extended Release Tablet PO 07/02/25 07:59 10 meq
DAILY ATTILA Administration
Senna/Docusate Sodium 1 tablet 06/04/25 02:45
Docusate W/Senna (Chiqui-Colace) Tablet PO 07/02/25 02:44
BIDPRN PRN
constipation
Sodium Chloride 0 flush 06/04/25 03:00 06/04/25 10:41
Sodium Chloride 0.9% (Flush) Syringe IV 07/02/25 02:59 1 flush
PER PROTOCOL ATTILA Administration
Triamterene/Hydrochlorothiazide 1 capsule 06/04/25 08:00 06/04/25 10:40
Triamterene (37.5 Mg)/Hydrochlorothiazide (25 Mg) Capsule PO 07/02/25 07:59 1 capsule
DAILY ATTILA Administration
Home Medications
�Medication �Instructions �Recorded
losartan 25 mg tablet 25 mg PO DAILY Blood Pressure 11/06/23
potassium chloride 10 mEq 10 meq PO DAILY Electrolyte 11/06/23
capsule,extended release Repletion
ascorbic acid 7.5 mg-vit E 7.5 3 tab PO DAILY Supplement 04/29/24
unit-biotin 1,250 mcg chewable
tablet (Hair,Skin,Nails with
Biotin)
Held on 05/05/24.
Instructions: Resume on
05/13/24.
diazepam 10 mg tablet 10 mg PO BID anxiety 04/29/24
triamterene 37.5 1 cap PO DAILY Blood Pressure 04/29/24
mg-hydrochlorothiazide 25 mg
capsule
Saccharomyces boulardii 250 mg 250 mg PO BID #1 cap 05/05/24
capsule (Florastor)
acetaminophen 500 mg tablet 1,000 mg (2 x 500 mg) PO QID Pain 05/05/24
(Tylenol Extra Strength) #0 tabs
magnesium hydroxide 400 mg/5 mL 30 ml PO HS PRN Constipation #1 mL 05/05/24
oral suspension (Milk of Magnesia)
mupirocin 2 % topical ointment 1 applic topical BID Skin Issues 05/05/24
sennosides 8.6 mg tablet (Senokot) 17.2 mg (2 x 8.6 mg) PO BID 05/05/24
laxative #2 tabs
ondansetron 4 mg disintegrating 4 mg PO Q6H PRN n/v #20 tabs 05/06/24
tablet
Vital Signs and Labs
-
Vital Signs and Labs:
Vital Signs
Temp Pulse Resp BP Pulse Ox
36.4 C 72 12 151/76 96
06/04/25 07:00 06/04/25 10:38 06/04/25 07:00 06/04/25 10:38 06/04/25 07:00
Lab Results
06/03/25 19:59
06/03/25 19:59
Sodium 134 mmol/L (135-145) L 06/03/25 19:59
Potassium 3.6 mmol/L (3.5-5.1) 06/03/25 19:59
BUN 14 mg/dl (7-17) 06/03/25 19:59
Glucose 126 mg/dl (70-99) H 06/03/25 19:59
Calcium 8.9 mg/dl (8.4-10.2) 06/03/25 19:59
Medications
-
Medications:
Generic Name Dose Route Start Last Admin
Trade Name Freq PRN Reason Stop Dose Admin
Acetaminophen 650 mg 06/04/25 02:45 06/04/25 09:18
Acetaminophen 325 Mg Tablet PO 07/02/25 02:44 650 mg
Q4HPRN PRN Administration
mild pain/VAUGHAN/temp> 100.4F
Bisacodyl 10 mg 06/04/25 02:45
Bisacodyl 10 Mg Rectal Suppository RECTAL 07/02/25 02:44
[id number] PRN
constipation
Diazepam 10 mg 06/04/25 02:45
Diazepam 5 Mg Tablet PO
TID PRN
anxiety
Enoxaparin Sodium 40 mg 06/04/25 18:00
Enoxaparin Sodium 40 Mg/0.4 Ml Syringe SC 07/02/25 17:59
QPM ATTILA
Losartan Potassium 50 mg 06/04/25 08:00 06/04/25 10:38
Losartan 50 Mg Tablet PO 07/02/25 07:59 50 mg
DAILY ATTILA Administration
Methadone HCl 10 mg 06/04/25 08:00 06/04/25 10:39
Methadone 5 Mg Tablet PO 06/18/25 07:59 10 mg
DAILY ATTILA Administration
Miconazole Nitrate 0 applic 06/04/25 08:00 06/04/25 10:39
Miconazole Powder Bottle TOPICAL 07/02/25 07:59 1 applic
BID ATTILA Administration
Polyethylene Glycol 17 grams 06/04/25 02:45
Polyethylene Glycol Powder 17 Grams Packet PO 07/02/25 02:44
DAILYPRN PRN
constipation
Potassium Chloride 10 meq 06/04/25 08:00 06/04/25 10:40
Potassium Chloride 10 Meq Extended Release Tablet PO 07/02/25 07:59 10 meq
DAILY ATTILA Administration
Senna/Docusate Sodium 1 tablet 06/04/25 02:45
Docusate W/Senna (Chiqui-Colace) Tablet PO 07/02/25 02:44
BIDPRN PRN
constipation
Sodium Chloride 0 flush 06/04/25 03:00 06/04/25 10:41
Sodium Chloride 0.9% (Flush) Syringe IV 07/02/25 02:59 1 flush
PER PROTOCOL ATTILA Administration
Triamterene/Hydrochlorothiazide 1 capsule 06/04/25 08:00 06/04/25 10:40
Triamterene (37.5 Mg)/Hydrochlorothiazide (25 Mg) Capsule PO 07/02/25 07:59 1 capsule
DAILY ATTILA Administration
Home Medications
-
Home Medications
losartan 25 mg tablet 25 mg PO DAILY Blood Pressure 11/06/23
potassium chloride 10 mEq capsule,extended release 10 meq PO DAILY Electrolyte Repletion 11/06/23
ascorbic acid 7.5 mg-vit E 7.5 unit-biotin 1,250 mcg chewable tablet (Hair,Skin,Nails with Biotin) 3 tab PO DAILY Supplement 04/29/24
Held on 05/05/24. Instructions: Resume on 05/13/24.
diazepam 10 mg tablet 10 mg PO BID anxiety 04/29/24
triamterene 37.5 mg-hydrochlorothiazide 25 mg capsule 1 cap PO DAILY Blood Pressure 04/29/24
Saccharomyces boulardii 250 mg capsule (Florastor) 250 mg PO BID #1 cap 05/05/24
acetaminophen 500 mg tablet (Tylenol Extra Strength) 1,000 mg (2 x 500 mg) PO QID Pain #0 tabs 05/05/24
magnesium hydroxide 400 mg/5 mL oral suspension (Milk of Magnesia) 30 ml PO HS PRN Constipation #1 mL 05/05/24
mupirocin 2 % topical ointment 1 applic topical BID Skin Issues 05/05/24
sennosides 8.6 mg tablet (Senokot) 17.2 mg (2 x 8.6 mg) PO BID laxative #2 tabs 05/05/24
ondansetron 4 mg disintegrating tablet 4 mg PO Q6H PRN n/v #20 tabs 05/06/24
--- NOTE | 2025-06-04 14:32 | W.PN.HOSP.TC ---
Today's Communication/Plan
-
await PT/ortho/neuro input
may need SNF
Assessment / Plan
Assessment / Plan
pt is an 79 year old female
Ambulatory dysfunction--likely due to weakness from COVID vaccine--BUT cannot rule out mild GBS but pt denies numbness--also had 2 'falls' out of bed (rolled off the bed twice)--right knee and ankle x-rays negative--left knee with avulsion fracture
of [facility]--consult neuro/ortho/PT
Essential Hypertension -stable--Continue losartan--Continue hydrochlorothiazide/triamterene
chronic pain with methadone dependence
DVT proph�Lovenox subcu
CODE STATUS�full code
Anticipated Discharge: > 48 hours
Subjective/Interval History
-
Date of Service: June 04, 2025
pt c/o weakness after COVID shot/injection
Objective Data
-
Vital Signs:
max temp for 24 hours
06/04/25
03:07
Temp 99.6 F
Vital Signs
Temp Pulse Resp BP Pulse Ox
97.6 F 72 12 151/76 96
06/04/25 07:00 06/04/25 10:38 06/04/25 07:00 06/04/25 10:38 06/04/25 09:00
I&O
06/03/25 06/04/25 06/05/25
06:59 06:59 06:59
Intake Total 0 / 0
Balance 0 / 0
Review of Systems
-
All other systems: Reviewed and negative
Physical Exam
-
General: Well Developed, Well Nourished and No Apparent Distress
HEENT: Normocephalic and Atraumatic
Respiratory: Clear to Auscultation; Negative Wheezes or Rhonchi
Cardiac: Regular Rhythm and S1/S2; Negative Murmur
GI: Soft, Nontender, Nondistended and Normal Bowel Sounds
Musculoskeletal: No Clubbing, No Cyanosis and No Edema
Neuro: Other (foot drop right foot (chronic?)--bilateral knees with c/d/i scars from TKA)
Psych: Calm
--- NOTE | 2025-06-04 15:07 | CM ---
Patient sleeping. Initial assessment completed with . Patient lives with in a 2 story plus basement home with B/B on to enter. [employer] patient was independent in ADL's and ambulation with a RW. She also has a w/ch in the home.
She does not drive. No in-home services. Does have HC-POA. No VA benefits. No psychiatric hospitalizations. PCP is Dr. Jason Corona. [facility]acy is [facility]. Discharge POC: Anticipating SNF. Patient in pain and has significant
decrease in LE mobility. Will need therapy eval.
[2025-06-04] MEDS: ASPIR LOW (ENTERIC COATED) 81 MG PO (17:54)
[2025-06-04] MEDS: LOVENOX 40 MG SC (17:55)
--- NOTE | 2025-06-04 18:00 | PTCARENOTE ---
Dr. Zhou ok with ordered labs (B1, B12, Protein Electrophoresis, Total CK), to be drawn with am labs in the morning.
Initated NIHSS as Brain MRI indication is r/o TIA, stroke education packet provided.
[2025-06-05] MEDS: TYLENOL 650 MG PO ×3 (04:05→14:56)
[2025-06-05 05:00] VITALS: BP 153/65
[2025-06-05 05:02] LABS: Hematocrit 37.4 % (37.0-47.0); Hemoglobin 13.1 g/dL (12.0-16.0); Mean Corp Hgb Conc. 35.0 g/dL (33.0-37.0); Mean Corpuscular Volume 93.7 fL (81.0-99.0); Platelet Count 224 10^3/uL (130-400); Red Cell Dist. Width 12.3 % (11.5-14.5)
[2025-06-05 05:29] LABS: Blood Urea Nitrogen 8 mg/dl (7-17); Calcium 8.6 mg/dl (8.4-10.2); Carbon Dioxide 31 mmol/L (22-30); Chloride 100 mmol/L (98-107); Estimated Creatinine Clearance 79 ml/min; Glucose 99 mg/dl (70-99); Magnesium 1.6 mg/dl (1.6-2.3); Potassium 3.5 mmol/L (3.5-5.1); Sodium 135 mmol/L (135-145); eGFR > 60.00
[2025-06-05 06:00] VITALS: BMI 38.1
[2025-06-05 06:19] LABS: Vitamin B12 423 pg/ml (239-931)
[2025-06-05 07:00] VITALS: BP 159/65
[2025-06-05] MEDS: ASPIR LOW (ENTERIC COATED) 81 MG PO (09:10)
[2025-06-05] MEDS: COZAAR 50 MG PO (09:10)
[2025-06-05] MEDS: DYAZIDE 1 CAPSULE PO (09:11)
[2025-06-05] MEDS: KCL 10 MEQ PO (09:11)
[2025-06-05] MEDS: FLUSH (NSS) 1 FLUSH IV (09:12)
[2025-06-05] MEDS: DOLOPHINE 10 MG PO (09:12)
[2025-06-05] MEDS: NON-FORMULARY ITEM 10 MG PO (09:12)
[2025-06-05] MEDS: SENOKOT-S 1 TABLET PO (09:14)
--- NOTE | 2025-06-05 09:15 | CON.ORTHO ---
Addendum entered and electronically signed by Airam Owens DO 06/05/25 14:39:
Patient was seen in tandem with the orthopedic PA. Patient ambulates with a walker typically. She . Had no falls but did do 2 deep knee squatting activities over the past week that created pain symptoms in her legs. She is being evaluated by
neurology for weakness. She does have a history of right foot drop/leg drop that is likely due to lower back pre-existing issues. She did have total knee arthroplasties in the past. We were consulted to review x-rays and exam and her knees.
There is no evidence of acute injury to the knees or legs both Radiographically or clinically. The calcification at the MCL insertion is indicative of a Steda Hien lesion which is a normal finding. No acute fractures, dislocations or lesions
of her total knee arthroplasties.She was encouraged to use her walker for ambulation purposes. Follow-up in accordance with neurology's recommendations
Original Note:
Consultation
-
Date/Time Consultation Requested: 06/04/2025 1222
Date/Time Consultation Performed: 06/05/2025 0730
Requesting Provider: Dr. Nusrat Carrera
Performing Provider: LAMIN Levy
Reason for Consultation: Bilateral knee pain/weakness
Consultation - Orthopedics
History
79-year-old female presented to [facility] via EMS after onset of weakness on the morning of 03 June 2025 with reported baseline history of chronic ambulatory dysfunction involving primarily her right leg. She is a history of bilateral
knee arthroplasty for an outside group and right total hip arthroplasty with Dr. Newman in April 2024. Patient was noted to have chronic weakness of right lower extremity at that time. She reports while getting out of her bed she felt
somewhat twisted and generalized weakness in her lower extremities that happened twice without a direct impact or specific fall warm to a deep squat. Denies any direct impact of her knees.
Allergies / Home Medications
Past Medical History: Reports Other
Additional Past Medical History:
Hypertension
Lumbar DDD / Spinal Stenosis
Chronic Pain Syndrome
Chronic Opioid Dependence
Anxiety / Depression
History of Atrial Fibrillation
Obesity
Past Surgical History: Reports Other
Additional Past Surgical History:
Laminectomy from T12 - L5. Patient states no hardware in place
Bilateral TKA
R HERMAN Dr. Newman Apr 2024
Laparoscopic Right BSO
Social History
Tobacco: Former Smoker (Quit smoking in the . Approx 30 pack years total use.)
Alcohol: None
Drug: None
Family History
Family History: Not pertinent
Allergy/AdvReac Type Severity Reaction Status Date / Time
fentanyl Allergy Vomiting Verified 06/03/25 17:27
methylprednisolone (From Allergy swelling Verified 06/03/25 17:27
Depo-Medrol) to hands
midazolam HCl (From Versed) Allergy Vomiting Verified 06/03/25 17:27
oxycodone HCl (From Percocet) Allergy Nausea / Verified 06/03/25 17:27
Vomiting
Sulfa (Sulfonamide Allergy Hives Verified 06/03/25 17:27
Antibiotics)
venom-honey bee (bee venom Allergy Anaphylaxis Verified 06/03/25 17:27
(honey bee))
�Medication �Instructions �Recorded
losartan 25 mg tablet 50 mg PO DAILY Blood Pressure 11/06/23
potassium chloride 10 mEq 10 meq PO DAILY Electrolyte 11/06/23
capsule,extended release Repletion
ascorbic acid 7.5 mg-vit E 7.5 3 tab PO DAILY Supplement 04/29/24
unit-biotin 1,250 mcg chewable
tablet (Hair,Skin,Nails with
Biotin)
Held on 05/05/24.
Instructions: Resume on
05/13/24.
diazepam 10 mg tablet 10 mg PO BID anxiety 04/29/24
triamterene 37.5 1 cap PO DAILY Blood Pressure 04/29/24
mg-hydrochlorothiazide 25 mg
capsule
Saccharomyces boulardii 250 mg 250 mg PO BID #1 cap 05/05/24
capsule (Florastor)
acetaminophen 500 mg tablet 1,000 mg (2 x 500 mg) PO QID Pain 05/05/24
(Tylenol Extra Strength) #0 tabs
magnesium hydroxide 400 mg/5 mL 30 ml PO HS PRN Constipation #1 mL 05/05/24
oral suspension (Milk of Magnesia)
mupirocin 2 % topical ointment 1 applic topical BID Skin Issues 05/05/24
sennosides 8.6 mg tablet (Senokot) 17.2 mg (2 x 8.6 mg) PO BID 05/05/24
laxative #2 tabs
ondansetron 4 mg disintegrating 4 mg PO Q6H PRN n/v #20 tabs 05/06/24
tablet
methadone 5 mg tablet 10 mg PO DAILY Pain 06/04/25
paroxetine HCl 10 mg tablet 10 mg PO DAILY 06/04/25
Vital Signs / Lab Results
Temp Pulse Resp BP Pulse Ox
97.4 F 65 16 159/65 97
06/05/25 07:00 06/05/25 09:10 06/05/25 07:00 06/05/25 09:10 06/05/25 07:00
PHYSICAL EXAM: Focused examination of the bilateral lower extremities show skin is intact with no erythema edema or ecchymosis. There is no effusion of either knee. She is generalized nonspecific tenderness. She demonstrates intact extensor
tendon mechanism bilaterally however with greater demonstrated strength of the left side comparatively towards the right. Slightly decreased sensation of the right lower extremity but demonstrates gross neurovascular intact with motor but with
generalized weakness primarily dorsiflexion compared to the contralateral side as well. Knee flexion 0 to 90 degrees of the left side, 0 to 70 degrees of the right side. Stable to varus and valgus stress testing at 0 and 30 degrees.
IMAGING: X-rays taken of the bilateral knees show status post bilateral total knee arthroplasty without evidence of hardware complication. Chronic opacification of the medial tibial plateau consistent with chronic ossification likely of the medial
collateral ligament potentially from initial surgery or remote injury or baseline
06/05/25 04:55
06/05/25 04:55
Assessment / Plan
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
consultation without evidence of hardware complication or specific injury of her bilateral knee arthroplasties done by an outside group.
- No specific orthopedic intervention recommended.
- As medically safe recommend physical therapy/Occupational Therapy and range of motion of her lower extremities. Consider acute rehab versus [facility] facility as indicated.
No specific orthopedic follow-up recommended; orthopedic surgical follow-up for the time being. Please contact with further questions or concerns
[2025-06-05] MEDS: DESENEX/MITRAZOL/ZEASORB 1 APPLIC TOPICAL (09:17)
[2025-06-05 10:44] VITALS: BP 158/69; PULSE 68
--- NOTE | 2025-06-05 11:24 | W.PN.NEURO.1 ---
Today's Communication / Plan
-
.
Subjective/Objective
Subjective Data
Date of Service: June 05, 2025
Neurology follow-up note
Ms. Gentile reports no change in leg strength since the admission. She denies having change in vision, sensation or balance.
Brain MRI is pending.
The patient states that she was told not to have A-fib by a telecommunications network planner in the past.
PMH: HTN, dextroconvex scoliosis, DLP, DM, OA, L1-2, mod-sev BL NFS, BMI 38
PSH: T12 level to the L4 laminectomy, Bilateral cataract surgery, BL TKA, HERMAN
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
FH: Not contributory to current presentation
All: Sulfa's, oxycodone, midazolam, methylprednisolone, fentanyl
ROS: HEENT: Positive for headache, negative for vision changes.
Cardiovascular: Negative for chest pain, palpitations.
Genitourinary: Negative for urinary frequency, urgency, or incontinence.
Musculoskeletal: Positive for neck pain, negative for back pain.
Neurological: Positive for recent onset of salivary
General: Well developed. In no acute distress.
Cardio: Regular rate and rhythm without murmur. Extremities are without cyanosis or edema.
Neuro:
Mental Status: Alert, oriented to person, place, month, year. Did not know the date. Preserved attention and comprehension. Follows simple requests. No aphasia hemineglect.
Cranial Nerves: Pupils are equally round, symmetrical. EOMs full. Visual donis full to confrontation. No ptosis. No nystagmus. V1-V3 intact to light touch and pinprick bilaterally, symmetric. Face symmetric. Normal hearing AU. The palate
elevated well. SCMs and traps 5/5. Tongue midline. No dysarthria. High-pitched voice, mildly spastic
Motor: Increased motor tone in lower extremities. No pronator or arm drift. Strength 5/5 throughout, except for bilateral hip flexion 4- out of 5, right dorsiflexion�4+ out of 5. No clonus.
Reflexes: 0+ throughout the upper extremities and 0 knees. 0/2 in AJs. Plantar responses flexor bilaterally.
Sensory: Absent vibration at the toes and ankles.
Coordination: Unable to check for dysmetria ('I cannot move'). No tremors myoclonic movements but
Gait: deferred
Assessment and Plan:
I. Transient worsening of chronic ambulatory dysfunction.
II. Chronic asymmetric bilateral LS polyradiculopathy worse at the right L5 level.
III. Distal symmetric large fiber polyneuropathy.
IV. Chronic pain syndrome
V. Mood DO, NOS
- Fall precautions
- Brain MRI without radha
- Aspirin 81 mg QD
- Please follow up thiamine level, SPEP/IF
- PT OT.
I personally reviewed all radiology and labs along with past medical records pertinent to current medical problems. Total time spent in patient care is 35 minutes.
Thank you for allowing us to participate in the care of this patient. We will continue to follow. Please do not hesitate to contact us with any questions or concerns
Objective Data
Vital Signs
Temp Pulse Resp BP Pulse Ox
36.3 C 65 16 159/65 97
06/05/25 07:00 06/05/25 09:10 06/05/25 07:00 06/05/25 09:10 06/05/25 07:00
Lab Results
06/05/25 04:55
06/05/25 04:55
Sodium 135 mmol/L (135-145) 06/05/25 04:55
Potassium 3.5 mmol/L (3.5-5.1) 06/05/25 04:55
BUN 8 mg/dl (7-17) 06/05/25 04:55
Glucose 99 mg/dl (70-99) 06/05/25 04:55
Calcium 8.6 mg/dl (8.4-10.2) 06/05/25 04:55
Whole Bld Vitamin B1 Cancelled 06/05/25 06:00
Vitamin B12 Cancelled 06/05/25 06:00
Patient Allergies
fentanyl Allergy (Verified 06/03/25 17:27)
Vomiting
methylprednisolone (From Depo-Medrol) Allergy (Verified 06/03/25 17:27)
swelling to hands
midazolam HCl (From Versed) Allergy (Verified 06/03/25 17:27)
Vomiting
oxycodone HCl (From Percocet) Allergy (Verified 06/03/25 17:27)
Nausea / Vomiting
Sulfa (Sulfonamide Antibiotics) Allergy (Verified 06/03/25 17:27)
Hives
venom-honey bee (bee venom (honey bee)) Allergy (Verified 06/03/25 17:27)
Anaphylaxis
Vital Signs and Labs
-
Vital Signs and Labs:
Vital Signs
Temp Pulse Resp BP Pulse Ox
36.3 C 65 16 159/65 97
06/05/25 07:00 06/05/25 09:10 06/05/25 07:00 06/05/25 09:10 06/05/25 07:00
Lab Results
06/05/25 04:55
06/05/25 04:55
Sodium 135 mmol/L (135-145) 06/05/25 04:55
Potassium 3.5 mmol/L (3.5-5.1) 06/05/25 04:55
BUN 8 mg/dl (7-17) 06/05/25 04:55
Glucose 99 mg/dl (70-99) 06/05/25 04:55
Calcium 8.6 mg/dl (8.4-10.2) 06/05/25 04:55
Whole Bld Vitamin B1 Cancelled 06/05/25 06:00
Vitamin B12 Cancelled 06/05/25 06:00
Medications
-
Medications:
Generic Name Dose Route Start Last Admin
Trade Name Raul PRN Reason Stop Dose Admin
Acetaminophen 650 mg 06/04/25 02:45 06/05/25 08:53
Acetaminophen 325 Mg Tablet PO 07/02/25 02:44 650 mg
Q4HPRN PRN Administration
mild pain/VAUGHAN/temp> 100.4F
Aspirin 81 mg 06/04/25 17:00 06/05/25 09:10
Aspirin 81 Mg (Enteric Coated) Tablet PO 07/02/25 16:59 81 mg
DAILY ATTILA Administration
Bisacodyl 10 mg 06/04/25 02:45
Bisacodyl 10 Mg Rectal Suppository RECTAL 07/02/25 02:44
[id number] PRN
constipation
Diazepam 10 mg 06/04/25 02:45
Diazepam 5 Mg Tablet PO
TID PRN
anxiety
Enoxaparin Sodium 40 mg 06/04/25 18:00 06/04/25 17:55
Enoxaparin Sodium 40 Mg/0.4 Ml Syringe SC 07/02/25 17:59 40 mg
QPM ATTILA Administration
Losartan Potassium 50 mg 06/04/25 08:00 06/05/25 09:10
Losartan 50 Mg Tablet PO 07/02/25 07:59 50 mg
DAILY ATTILA Administration
Methadone HCl 10 mg 06/05/25 08:00 06/05/25 09:12
Methadone 5 Mg Tablet PO 06/19/25 07:59 10 mg
DAILY ATTILA Administration
Miconazole Nitrate 0 applic 06/04/25 08:00 06/05/25 09:17
Miconazole Powder Bottle TOPICAL 07/02/25 07:59 1 applic
BID ATTILA Administration
Paroxetine Hcl 10 Mg 0 mg 06/05/25 08:00 06/05/25 09:12
Tablet Po Daily PO 07/03/25 07:59 10 mg
DAILY ATTILA Administration
Polyethylene Glycol 17 grams 06/04/25 02:45
Polyethylene Glycol Powder 17 Grams Packet PO 07/02/25 02:44
DAILYPRN PRN
constipation
Potassium Chloride 10 meq 06/04/25 08:00 06/05/25 09:11
Potassium Chloride 10 Meq Extended Release Tablet PO 07/02/25 07:59 10 meq
DAILY ATTILA Administration
Senna/Docusate Sodium 1 tablet 06/04/25 02:45 06/05/25 09:14
Docusate W/Senna (Chiqui-Colace) Tablet PO 07/02/25 02:44 1 tablet
BIDPRN PRN Administration
constipation
Sodium Chloride 0 flush 06/04/25 03:00 06/05/25 09:12
Sodium Chloride 0.9% (Flush) Syringe IV 07/02/25 02:59 1 flush
PER PROTOCOL ATTILA Administration
Triamterene/Hydrochlorothiazide 1 capsule 06/04/25 08:00 06/05/25 09:11
Triamterene (37.5 Mg)/Hydrochlorothiazide (25 Mg) Capsule PO 07/02/25 07:59 1 capsule
DAILY ATTILA Administration
Home Medications
-
Home Medications
losartan 25 mg tablet 50 mg PO DAILY Blood Pressure 11/06/23
potassium chloride 10 mEq capsule,extended release 10 meq PO DAILY Electrolyte Repletion 11/06/23
ascorbic acid 7.5 mg-vit E 7.5 unit-biotin 1,250 mcg chewable tablet (Hair,Skin,Nails with Biotin) 3 tab PO DAILY Supplement 04/29/24
Held on 05/05/24. Instructions: Resume on 05/13/24.
diazepam 10 mg tablet 10 mg PO BID anxiety 04/29/24
triamterene 37.5 mg-hydrochlorothiazide 25 mg capsule 1 cap PO DAILY Blood Pressure 04/29/24
Saccharomyces boulardii 250 mg capsule (Florastor) 250 mg PO BID #1 cap 05/05/24
acetaminophen 500 mg tablet (Tylenol Extra Strength) 1,000 mg (2 x 500 mg) PO QID Pain #0 tabs 05/05/24
magnesium hydroxide 400 mg/5 mL oral suspension (Milk of Magnesia) 30 ml PO HS PRN Constipation #1 mL 05/05/24
mupirocin 2 % topical ointment 1 applic topical BID Skin Issues 05/05/24
sennosides 8.6 mg tablet (Senokot) 17.2 mg (2 x 8.6 mg) PO BID laxative #2 tabs 05/05/24
ondansetron 4 mg disintegrating tablet 4 mg PO Q6H PRN n/v #20 tabs 05/06/24
methadone 5 mg tablet 10 mg PO DAILY Pain 06/04/25
paroxetine HCl 10 mg tablet 10 mg PO DAILY 06/04/25
--- NOTE | 2025-06-05 11:28 | W.PN.HOSP.TC ---
Today's Communication/Plan
-
for brain MRI--if neg can d/c
Assessment / Plan
Assessment / Plan
pt is an 79 year old female
Ambulatory dysfunction--likely due to weakness from COVID vaccine--also had 2 'falls' out of bed (rolled off the bed twice)--right knee and ankle x-rays negative--left knee with avulsion fracture of MCL, apprec ortho, no further issues--apprec
neuro--PT/OT rec home health--for brain MRI--if OK, can d/c
'foul smelling urine'--previous UA neg--will recheck
Essential Hypertension -stable--Continue losartan--Continue hydrochlorothiazide/triamterene
chronic pain with methadone dependence
DVT proph�Lovenox subcu
CODE STATUS�full code
Anticipated Discharge: Today
Subjective/Interval History
-
Date of Service: June 05, 2025
pt c/o foul smelling urine
Objective Data
-
Labs:
Laboratory Results
06/05/25
04:55
WBC 5.3
Hgb 13.1
Hct 37.4
Plt Count 224
Sodium 135
Potassium 3.5
Chloride 100
Carbon Dioxide 31 H
BUN 8
Creatinine 0.5 L
Glucose 99
Calcium 8.6
Vital Signs:
max temp for 24 hours
06/04/25
23:08
Temp 97.6 F
Vital Signs
Temp Pulse Resp BP Pulse Ox
97.4 F 65 16 159/65 97
06/05/25 07:00 06/05/25 09:10 06/05/25 07:00 06/05/25 09:10 06/05/25 07:00
I&O
06/04/25 06/05/25 06/06/25
06:59 06:59 06:59
Intake Total 0 / 0 0 / 0
Balance 0 / 0 0 / 0
Review of Systems
-
All other systems: Reviewed and negative
Physical Exam
-
General: Well Developed, Well Nourished and No Apparent Distress
HEENT: Normocephalic and Atraumatic
Respiratory: Clear to Auscultation; Negative Wheezes or Rhonchi
Cardiac: Regular Rhythm, S1/S2 and Murmur
GI: Soft, Nontender, Nondistended and Normal Bowel Sounds
Musculoskeletal: No Clubbing, No Cyanosis and No Edema
Neuro: Other (weaker right leg, right foot drop? chronic?)
--- NOTE | 2025-06-05 14:20 | W.PN.UPDATE ---
Update Note
Progress Note Update
Brain MRI no acute abnormalities.
Plan:
- PT
- OP NCS/EMG
Tori Zhou M.D.
[2025-06-05 15:00] VITALS: BP 162/68
--- NOTE | 2025-06-05 15:04 | W.DCSUMMARY ---
Discharge Summary
Discharge Data
Date of Admission: 06/04/25
Date of Discharge: 06/05/25
-
Pending Results: Yes
Additional Pending Results:
SPEP, whole blood vitamin B1
Hospital Course
Primary care physician : Jason Corona
Principal Discharge diagnosis : Ambulatory dysfunction
Chronic Discharge diagnosis : Essential hypertension, chronic pain with methadone dependence
Hospital Course : Patient was an 79-year-old female who apparently has paroxysmal atrial fibrillation and chronic pain syndrome on chronic opioids with methadone dependency who presented with generalized weakness after COVID shot. Patient states
that she 'fell' out of bed twice. She rolled off the bed on Friday and got up Friday without any issue, she again did that Friday and got up without any issue. On Friday she got a COVID shot, and then reported significant weakness.
She was brought to the emergency department. She has chronic pain and is pending a spinal stimulator placement. Patient was admitted.
Problem #1: Ambulatory dysfunction. Patient was admitted and seen in consultation by orthopedics as well as neurology. X-ray of her right knee and ankle were negative but left knee showed avulsion fracture of the MCL. Orthopedics is not concerned
and she had full movement of her knees bilaterally. She was seen in consultation by neurology and brain MRI was negative. She was started on aspirin 81 mg daily. Thiamine and SPEP immunofixation are pending at this time. She was seen in
consultation by physical therapy and Occupational Therapy and both are recommending home health at this point.
Problem #2: All other medical issues. These include Essential hypertension, chronic pain with methadone dependence. These medical issues were stable during her hospitalization. Medications were continued as able.
Of note, patient was complaining of 'foul-smelling urine. On admission her urinalysis was negative. Tried to get another urinalysis unfortunately she did not adequately clean herself therefore it is not worth sending. If she continues to have
issues she should follow-up with her primary.
Patient is stable for discharge at this time with home health/visiting nurses set up. If there are any questions regarding this dictation or her hospital stay, please do not hesitate to call. Our office number is [phone].
Important imaging findings :
BRAIN MRI IMPRESSION:
No acute intracranial abnormality noted.
LEFT KNEE X-RAY IMPRESSION:
7 mm density adjacent to the medial margin of the medial femoral condyle not present previously. Possible age-indeterminate avulsion fracture related to the origin of the medial collateral ligament. Recommend clinical correlation to exclude acute
injury.
Discharge Plan
-
Patient Disposition: Home with Home Care
Discharge Diagnosis/Procedures: Ambulatory dysfunction due to weakness from COVID-vaccine, essential hypertension, chronic pain with methadone dependence
Condition: Fair
Diet: As tolerated and Regular
Activity: As tolerated
Driving Restrictions: No driving
Bathing Restrictions: None
Other Services: VN, PT and OT
Referrals:
Jason Corona DO [Family Provider, Internal Medicine] - in less than 1 week
Prescriptions:
New
aspirin 81 mg Tablet,Delayed Release (Dr/Ec)
81 mg PO DAILY Qty: 0 0RF
Continued
potassium chloride 10 mEq capsule, extended release
10 meq PO DAILY
losartan 25 mg Tablet
50 mg PO DAILY
triamterene-hydrochlorothiazid 37.5-25 mg Capsule
1 cap PO DAILY
diazepam 10 mg tablet
10 mg PO BID
Patient Comments:
11/06/2023, pt. filled this med. on 11/04/2023 for 90 tablets per PDMP.
Hair, Skin, Nails with Biotin 7.5-7.5-1,250 mg-unit-mcg Tablet,Chewable
3 tab PO DAILY
sennosides [Senokot] 8.6 mg tablet
17.2 mg PO BID Qty: 2 0RF
magnesium hydroxide [Milk of Magnesia] 400 mg/5 mL suspension
30 ml PO HS PRN (Reason: Constipation) Qty: 1 0RF
Saccharomyces boulardii [Florastor] 250 mg capsule
250 mg PO BID Qty: 1 0RF
acetaminophen [Tylenol Extra Strength] 500 mg tablet
1,000 mg PO QID Qty: 0 0RF
paroxetine HCl 10 mg Tablet
10 mg PO DAILY
methadone 5 mg Tablet
10 mg PO DAILY
Discontinued
mupirocin 2 % Ointment
1 applic TOPICAL BID
Patient Comments:
BID for 3 days, last dose this am
Rx Instructions:
discontinued
ondansetron [ondansetron] 4 mg tablet,disintegrating
4 mg PO Q6H PRN (Reason: n/v) Qty: 20 0RF
Patient Comments:
pt denies taking it anymore
Rx Instructions:
take 1/2h b/f pain med if recurrent nausea
allow to dissolve in mouth w/o water
Discharge Orders:
Discharge Patient (As Directed); Ordered 06/05/25
Ordered By: Nusrat Carrera
Discharge Date and Time
Print Language: ROMANIAN
--- NOTE | 2025-06-05 15:17 | CM ---
Patient has been medically cleared for discharge to home with [facility] RN, PT/OT services. Patient has arranged for transport home.
[2025-06-05 15:48] LABS: Urine Character Clear (Clear)
[2025-06-05 15:55] LABS: Urine Urothelial Cell 0-2 /LPF (FEW)
[2025-06-05 15:56] LABS: Urine White Cell 26-30 /HPF (0-5)
[2025-06-05 16:20] VITALS: BP 162/68
[2025-06-05 17:18] VITALS: BP 156/70
[2025-06-07 21:25] LABS: Vitamin B1, Whole Blood 146 nmol/L (70-180)
[2025-06-07 22:44] LABS: Albumin 3.04 g/dL (3.75-5.01); SPEP IFE Reflex Not Done; Total Protein-Electrophoresis 5.6 g/dL (6.3-8.2)
== END 2025-06-05 18:40 | disposition home health service (06) ==
LOC: 4 EAST ACU 01:26
PROVIDERS: Physician Assistant; ADMITTING PHYSICIAN Internal Medicine; ATTENDING PHYSICIAN Internal Medicine; CONSULT PHYSICIAN Orthopaedic Surgery; CONSULT PHYSICIAN Psychiatry & Neurology Neurology; EMERGENCY PHYSICIAN Emergency Medicine; FAMILY PHYSICIAN Internal Medicine
DX: R53.1 Weakness (principal); R26.2 Difficulty in walking, not elsewhere classified; M25.562 Pain in left knee; M25.561 Pain in right knee; T50.B95A Adverse effect of other viral vaccines, initial encounter; Y92.9 Unspecified place or not applicable; G89.4 Chronic pain syndrome; I10 Essential (primary) hypertension; I48.0 Paroxysmal atrial fibrillation; F41.9 Anxiety disorder, unspecified; M51.369 Other intervertebral disc degeneration, lumbar region without mention of lumbar back pain or lower extremity pain; F32.A Depression, unspecified; J45.909 Unspecified asthma, uncomplicated; F11.20 Opioid dependence, uncomplicated; M21.371 Foot drop, right foot; M19.071 Primary osteoarthritis, right ankle and foot; M25.462 Effusion, left knee; E66.9 Obesity, unspecified; W06.XXXA Fall from bed, initial encounter; Y93.89 Activity, other specified; Y92.003 Bedroom of unspecified non-institutional (private) residence as the place of occurrence of the external cause; Z87.891 Personal history of nicotine dependence; Z96.653 Presence of artificial knee joint, bilateral; Z68.38 Body mass index [BMI] 38.0-38.9, adult; Z88.5 Allergy status to narcotic agent; Z88.2 Allergy status to sulfonamides; Z88.8 Allergy status to other drugs, medicaments and biological substances; Z91.030 Bee allergy status; Z79.899 Other long term (current) drug therapy; Z98.42 Cataract extraction status, left eye; Z98.41 Cataract extraction status, right eye; Z90.722 Acquired absence of ovaries, bilateral
CPT/HCPCS: 70551; 73564; 73610; 80048; 80053; 81003; 81015; 82550; 82607; 83735; 84155; 84165; 84425; 85025; 85027; 87077; 87086; 87186; 97162; 97166; 99284; G0378

== ENCOUNTER → 2025-07-15 06:49 | Outpatient (REF) | payer OTHER, SELFPAY ==
[2025-07-15 10:23] LABS: ALT (SGPT) 25 U/L (0-35); AST (SGOT) 27 U/L (14-36); Albumin 4.2 g/dl (3.5-5.0); Alkaline Phosphatase 63 U/L (38-126); Blood Urea Nitrogen 11 mg/dl (7-17); Calcium 8.7 mg/dl (8.4-10.2); Carbon Dioxide 28 mmol/L (22-30); Chloride 99 mmol/L (98-107); Glucose 99 mg/dl (70-99); Potassium 4.2 mmol/L (3.5-5.1); Sodium 134 mmol/L (135-145); Total Protein 6.9 g/dl (6.3-8.2); eGFR > 60.00
[2025-07-15 10:40] LABS: Hematocrit 37.4 % (37.0-47.0); Hemoglobin 12.8 g/dL (12.0-16.0); Mean Corp Hgb Conc. 34.2 g/dL (33.0-37.0); Mean Corpuscular Volume 92.8 fL (81.0-99.0); Nucleated Red Blood Cells % 0 %; Red Cell Dist. Width 12.9 % (11.5-14.5)
[2025-07-15 11:38] LABS: Glycohemoglobin (HgbA1c) 5.8 % (4.0-5.9)
== END ==
LOC: HWLAB 06:49
PROVIDERS: ATTENDING PHYSICIAN Internal Medicine
DX: E11.22 Type 2 diabetes mellitus with diabetic chronic kidney disease (principal); I10 Essential (primary) hypertension; R19.7 Diarrhea, unspecified
CPT/HCPCS: 36415; 80053; 83036; 84443; 85025

== ENCOUNTER → 2025-07-20 07:27 | Outpatient (REF) | payer OTHER, SELFPAY | LOC: REG 07:27 | PROVIDERS: ATTENDING PHYSICIAN Internal Medicine | DX: R19.7 Diarrhea, unspecified (principal) | CPT/HCPCS: 36415; 87045; 87046; 87427 ==

== ENCOUNTER 2025-07-20 09:22 | Emergency (ER) | payer OTHER, SELFPAY ==
[2025-07-20 09:27] VITALS: BP 196/92
--- NOTE | 2025-07-20 11:48 | ED.GENMED ---
History of Present Illness
General
Chief Complaint: Fall
Source: patient and spouse
Exam Limitations: none
Time Seen by Provider: 07/20/25 11:05
Nursing documentation reviewed up to this point in time: agreed with
History of Present Illness
History of Present Illness:
79-year-old female with past medical history as noted presents to the emergency department for evaluation after trip and fall. Patient says that she unfortunately tripped on a vacuum waste cotton cleaner hose fell forward hit her face on the ground. She
sustained bruising and swelling of the right eye and has had a nosebleed since the fall. She says she did not pass out. She denies any other injuries�apparently complained of back pain in triage but she says this is chronic and not acutely
changed. She denies any headache or neck pain, rib pain, abdominal pain, injuries to the extremities. She was able to stand after the fall and put weight on the legs. She is not on any blood thinners aside from baby aspirin.
Past History
Past History
ED Past Medical History: Arrthythmia (Atrial fib), HTN and Other (Herniated disc, Chronic back pain, ); Negative Asthma, Hypercholesterolemia or NIDDM
ED Past Surgical History: Orthopedic (Laminectomy. Foot surgery, Right and left knee replacement.) and Other (Hernia surgery, )
Social History
Tobacco: Former smoker
Alcohol: Former
Drug: None
Personal:
Living: with family
Employment: Retired
Review of Systems
Review of Systems
All Other Systems: ROS reviewed and negative except as documented in HPI and ROS
Constitutional: Denies fever
EENT: Reports other (facial pain and swelling)
Respiratory: Denies trouble breathing
Cardiac: Denies chest pain
ABD/GI: Denies abdominal pain, nausea or vomiting
: Denies flank pain
Musculoskeletal: Denies joint pain, neck pain or back pain (Chronic and unchanged)
Neurological: Denies headache, weakness or numbness
Phy Exam
Physical Exam
Physical Exam:
General: Awake, alert, oriented x3; no acute distress
Head: Normocephalic, patient has large right periorbital ecchymosis/hematoma; she has some bruising and swelling of the nasal bridge
Nose: Bruising and swelling, tenderness of the nasal bridge and epistaxis noted, no septal hematoma noted
Eyes: Conjunctiva normal, EOMI�periorbital swelling on the right but eye itself appears uninjured
Throat: Airway intact, handling secretions, tongue atraumatic
Neck: Trachea midline, no cervical spine tenderness
Back: No tenderness in the thoracic or lumbar spine
Lungs: Breathing comfortably without distress
Heart: Regular rate; no chest wall tenderness
Abd: Soft, non distended, nontender
Neuro: Grossly intact
Skin: Warm and dry
Extremities: Atraumatic, no tenderness in the arms or the legs, moving all extremities freely without pain
Scores
Heart Failure Risk
Heart Failure Risk Score: Not Applicable
Heart Score for Chest Pain Patients
STEMI patient?: Not applicable
Withdrawal Assessment of Alcohol
Withdrawal Assessment Completed?: Not applicable
Course
Orders/Labs/Results
Orders:
Orders
07/20/25 11:07
CT Cervical Spine W/o Iv Contr Urgent
Comment:
Reason For Exam: fall with frontal headstrike
CT Head W/o Iv Contrast Urgent
Comment:
Reason For Exam: fall with frontal headstrike
07/20/25 11:13
CT Facial Bones W/o Iv Contras Urgent
Comment:
Reason For Exam: right periorbital swelling, nasal swelling
07/20/25 11:38
Acetaminophen [Tylenol] 650 mg PO NOW STA
Vital Signs
Initial and Last Documented VS:
Initial Vital Signs
Temp Pulse Resp BP Pulse Ox
36.6 C 91 20 196/92 98
07/20/25 09:27 07/20/25 09:27 07/20/25 09:27 07/20/25 09:27 07/20/25 09:27
Last Documented Vital Signs
Temp Pulse Resp BP Pulse Ox
36.6 C 91 20 196/92 98
07/20/25 09:27 07/20/25 09:27 07/20/25 09:27 07/20/25 09:27 07/20/25 11:53
MDM/Problems Addressed
Differential Diagnosis Includes:
Brain bleed, facial fracture, cervical spine fracture all must be ruled out
MDM/Problems Addressed:
79-year-old female with history as noted presents after mechanical trip and fall with facial trauma as described above. Vitals and exam are as above. Will plan to check CT of the head, cervical spine, facial bones. Tylenol for pain. Reassess
after the above.
CT head and cervical spine negative for any posttraumatic injury. CT of the face shows orbital floor fracture with inferior displacement. There is some edema of the intraorbital fat no clear focal hematoma but moderate proptosis with some tension
on the globe. Due to the degree of swelling her eye exam is somewhat limited but she is able to move eye medial and laterally without apparent deficit and pupil appears round and reactive and vision appears to be generally intact. Overall however
given her degree of swelling and findings on CT I do think she should be seen by ophthalmology and trauma for evaluation. Discussed with trauma team at [facility] and patient was accepted for transfer.
Acute Exacerbation and/or Progression of Chronic Illness: HTN
*Radiology
Radiology exam reviewed: radiology read reviewed
*Pulse Oximetry
SaO2: 98
Oxygen Mode of Delivery: Room air
Patient hypoxic: no (98%)
*Critical Care Note
Total Time (30-74mins, 75-104mins- exclusive of procedures): Not Applicable
Data Reviewed
Source: patient, spouse and ambulance crew
Patient Management
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
Escalation/DeEscalation of care consider admission/obs:
Transfer to trauma center
ED Attending Note
-
Portions of this chart may have been created with voice recognition software.� Occasional wrong word or��sound alike� substitutions may have occurred due to the inherent limitations of voice recognition software.
Discharge Plan
Departure
Patient Disposition: Acute Care Hospital
Date of Disposition: 07/20/25
Time of Disposition: 13:32
Discharge Problem:
Fracture of orbital floor
Prescriptions:
No Action
potassium chloride 10 mEq capsule, extended release
10 meq PO DAILY
losartan 25 mg Tablet
50 mg PO DAILY
triamterene-hydrochlorothiazid 37.5-25 mg Capsule
1 cap PO DAILY
diazepam 10 mg tablet
10 mg PO BID
Patient Comments:
11/06/2023, pt. filled this med. on 11/04/2023 for 90 tablets per PDMP.
Hair, Skin, Nails with Biotin 7.5-7.5-1,250 mg-unit-mcg Tablet,Chewable
3 tab PO DAILY
sennosides [Senokot] 8.6 mg tablet
17.2 mg PO BID Qty: 2 0RF
magnesium hydroxide [Milk of Magnesia] 400 mg/5 mL suspension
30 ml PO HS PRN (Reason: Constipation) Qty: 1 0RF
Saccharomyces boulardii [Florastor] 250 mg capsule
250 mg PO BID Qty: 1 0RF
acetaminophen [Tylenol Extra Strength] 500 mg tablet
1,000 mg PO QID Qty: 0 0RF
paroxetine HCl 10 mg Tablet
10 mg PO DAILY
methadone 5 mg Tablet
10 mg PO DAILY
aspirin 81 mg Tablet,Delayed Release (/Ec)
81 mg PO DAILY Qty: 0 0RF
Referrals:
Jason Corona DO [Family Provider, Internal Medicine]
Hospital Transfer
Other hospital: [facility]
I certify that the patient requires transfer: Yes
Discussed case with accepting physician: Dr. Burgess
Reason for transfer: higher level of care and specialties available
Interventions
Interventions:
*Risk Screen - Suicide Last Done: 07/20/25 09:27
*General Assessment Last Done: 07/20/25 09:27
*Neglect/Abuse Screening Last Done: 07/20/25 09:27
ED-Musculoskeletal Assessment Last Done: 07/20/25 12:03
ED- Neurological Assessment Last Done: 07/20/25 12:03
ED-Skin Assessment Last Done: 07/20/25 12:03
Discharge Date and Time
Print Language: [place]
[2025-07-20] MEDS: TYLENOL 650 MG PO (11:54)
[2025-07-20 13:44] VITALS: BMI 40.1
[2025-07-20] MEDS: ZOFRAN 4 MG IV (14:01)
[2025-07-20 14:14] LABS: Hematocrit 39.8 % (37.0-47.0); Hemoglobin 13.7 g/dL (12.0-16.0); Mean Corp Hgb Conc. 34.4 g/dL (33.0-37.0); Mean Corpuscular Volume 92.1 fL (81.0-99.0); Nucleated Red Blood Cells % 0 %; Platelet Count 274 10^3/uL (130-400); Red Cell Dist. Width 12.8 % (11.5-14.5)
[2025-07-20 14:34] LABS: ALT (SGPT) 28 U/L (0-35); AST (SGOT) 32 U/L (14-36); Albumin 4.7 g/dl (3.5-5.0); Alkaline Phosphatase 64 U/L (38-126); Blood Urea Nitrogen 16 mg/dl (7-17); Calcium 9.2 mg/dl (8.4-10.2); Carbon Dioxide 28 mmol/L (22-30); Chloride 98 mmol/L (98-107); Estimated Creatinine Clearance 81 ml/min; Glucose 158 mg/dl (70-99); Potassium 4.3 mmol/L (3.5-5.1); Sodium 134 mmol/L (135-145); Total Protein 7.7 g/dl (6.3-8.2); eGFR > 60.00
[2025-07-20 14:43] VITALS: BP 186/101
[2025-07-20] MEDS: ADACEL 0.5 ML IM (15:06)
== END 2025-07-20 15:28 | disposition short-term general hospital (02) ==
LOC: EMR 09:22
PROVIDERS: EMERGENCY PHYSICIAN Emergency Medicine; FAMILY PHYSICIAN Internal Medicine
DX: S02.31XA Fracture of orbital floor, right side, initial encounter for closed fracture (principal); S05.11XA Contusion of eyeball and orbital tissues, right eye, initial encounter; W18.09XA Striking against other object with subsequent fall, initial encounter; I10 Essential (primary) hypertension; I48.91 Unspecified atrial fibrillation; Z23 Encounter for immunization; Z87.891 Personal history of nicotine dependence
CPT/HCPCS: 96374; 90471; 99284; 70450; 70486; 72125; 80053; 85025; 90715